=== PATIENT | female | born 1980 | race Caucasian/White ===

== ENCOUNTER → 2016-06-26 | Outpatient (CLI) | payer OTHER ==
[~2016-06-26] MED LIST: SODIUM CHLORIDE 0.9% 250 ML in EMPTY BAG 1 BAG IV PRN
[2016-06-26] MEDS: SODIUM CHLORIDE 0.9% 500 ML in EMPTY BAG 1 BAG IV PRN ×4 (12:45→15:36)
[2016-06-26 12:57] VITALS: BP 103/59; PULSE 71; RESP 16; TEMP 98.6
== END | disposition home or self-care (01) ==
LOC: PROCWHC3 12:24
PROVIDERS: ATTEND Surgery Plastic and Reconstructive Surgery
DX: E86.0 Dehydration (principal)
CPT/HCPCS: 96360; 96361

== ENCOUNTER → 2016-07-04 | Outpatient (CLI) | payer OTHER ==
[2016-07-04 15:26] VITALS: BP 106/64; PULSE 46; TEMP 98.3
[2016-07-04 16:01] LABS: EKG EKG PERFORMED
[2016-07-04 16:18] VITALS: BMI 40.4
[2016-07-04 16:47] LABS: CH 28.1; CHCM 32.3; HCT 48.3 % (34.0-46.0); HDW 3.22; HGB 15.2 gm/dL (11.4-16.0); MCH 27.5 pg (25.0-35.0); MCHC 31.4 g/dL (31.0-37.0); MCV 87.7 fL (80.0-100.0); Mean Platelet Volume 10.1; RBC 5.51 m/uL (3.80-5.40); RDW 14.9 % (11.5-15.5); WBC 8.9 k/uL (3.8-10.6)
[2016-07-04 16:54] LABS: INR 1.2 (<1.1); Partial Thromboplastin Time 24.9 sec (22.0-30.0); Prothrombin Time 11.9 sec (9.0-12.0)
[2016-07-04 17:16] LABS: ALT 90 U/L (9-52); AST 66 U/L (14-36); Alkaline Phosphatase 78 U/L (38-126); Anion Gap 10 mmol/L; Blood Urea Nitrogen 12 mg/dL (7-17); Calcium 9.4 mg/dL (8.4-10.2); Carbon Dioxide 24 mmol/L (22-30); Chloride 109 mmol/L (98-107); Cholesterol 151 mg/dL (<200); Glucose 87 mg/dL (74-99); HDL Cholesterol 25 mg/dL (40-60); Iron 52 ug/dL (37-170); Magnesium 2.1 mg/dL (1.6-2.3); Non-African American GFR(MDRD) >60 (>60 ml/min/1.73 sqM); Potassium 4.4 mmol/L (3.5-5.1); Sodium 143 mmol/L (137-145); Total Bilirubin 0.5 mg/dL (0.2-1.3); Total Protein 6.5 g/dL (6.3-8.2); Triglycerides 118 mg/dL (<150)
[2016-07-04 17:27] LABS: % Iron Saturation 20.5 % (20-50); Prealbumin 16 mg/dL (18-36); Total Iron Binding Capacity 254 ug/dL (265-497)
[2016-07-04 18:23] LABS: Vitamin B12 830 pg/mL (239-931)
[2016-07-04 21:28] LABS: Hemoglobin A1C 5.3 % (4.2-6.1)
[2016-07-06 16:52] LABS: Selenium 126 mcg/L (63-160)
--- NOTE | 2016-07-22 16:57 | P.PN ---
Progress Note - Text DATE OF SERVICE: 07/04/2016 CHIEF COMPLAINT: Follow-up gastric bypass. HISTORY OF PRESENT ILLNESS: Caryn Riley is a 35-year-old female who is status post gastric bypass on 2015. She is now one month out. Her highest weight at 5 feet 9-3/4 inches was 325 pounds. Body mass index was 47. Today she comes in weighing 281 pounds. Body mass index is down to 41. He has lost 44 pounds in one month. Percent excess weight loss is 28%. She has actually lost another 20 pounds since her last visit in the last several weeks. She reports troubles with nausea including poor oral intake of less than 40 ounces of fluids. She has difficulty with her protein intake. No reports of nausea and vomiting. She does report dizziness, consistent with dehydration. PHYSICAL EXAM: VITAL SIGNS: 98.3, 46, 106/64, 5 feet 9-3/4 inches, 281 pounds. Body mass index 40.6. GENERAL: Well-developed female in no acute distress. ABDOMEN: No cellulitis or signs of infection. Wounds are granulated. HEENT: No scleral icterus. Extraocular muscles are intact. Moist buccal mucosa. NECK: Supple without lymphadenopathy. CHEST: Nonlabored respirations with equal bilateral excursions. CARDIOVASCULAR: Bradycardic. 2+ pulses. MUSCULOSKELETAL: No clubbing, cyanosis, or edema. NEUROLOGICAL: Cranial nerves 2 through 12 grossly within normal limits. No focal or lateralizing signs. PSYCH: Appropriate affect. Alert and oriented to person, place and time. LABS: White count normal at 8.9. Hemoglobin elevated at 15.2. RBC elevated at 5.51. Hematocrit elevated at 48.3. INR normal at 1.2. Chloride elevated at 109. Total iron-binding capacity low at 254. AST elevated 66. ALT elevated at 90. Prealbumin low at 16. LDL elevated at 102. Cholesterol normal at 151. HDL low at 25. EKG results pending. ASSESSMENT: 1. Morbid obesity due to excess caloric intake. 2. Body mass index down from 47 down to 40.6. 3. Gastroesophageal reflux disease, resolved. 4. Vitamin D deficiency. 5. Osteoarthritis of the bilateral hips. 6. Osteoarthritis of the knees. 9. Dietary surveillance and counseling. 7. Depression without recent suicidal ideation. 8. Asthma. 9. Bipolar disorder. 10. Obstructive sleep apnea. 11. Status post Sue-en-Y gastric bypass. 12. Dehydration. 13. Dietary surveillance and counseling. 14. Medical noncompliance secondary to intolerance to protein shakes. 15. Elevated AST. 16. Elevated ALT. 17. New onset bradycardia. 18. Adverse reaction of Prozac. PLAN: 1. Recommend fluid hydration as her chloride level as well as her hematocrit are elevated. 2. She is also on Prozac for which the risk factors and symptoms of Prozac were reviewed, consistent with her symptoms. 3. Her prealbumin is consistent with low protein intake. Goal protein intake of over 70+ grams was also advised. 4. Also recommend followup between 1 to 2 weeks.
== END | disposition home or self-care (01) ==
LOC: BARWHC3 14:21
PROVIDERS: ATTEND Surgery Plastic and Reconstructive Surgery
DX: Z48.815 Encounter for surgical aftercare following surgery on the digestive system (principal); Z71.3 Dietary counseling and surveillance; Z98.84 Bariatric surgery status; Z68.42 Body mass index [BMI] 45.0-49.9, adult; E86.0 Dehydration; Z91.11 Patient's noncompliance with dietary regimen; R79.89 Other specified abnormal findings of blood chemistry; R00.1 Bradycardia, unspecified; T43.225A Adverse effect of selective serotonin reuptake inhibitors, initial encounter; E21.1 Secondary hyperparathyroidism, not elsewhere classified; E89.1 Postprocedural hypoinsulinemia; D50.8 Other iron deficiency anemias; E44.0 Moderate protein-calorie malnutrition; E55.9 Vitamin D deficiency, unspecified; K74.1 Hepatic sclerosis; T56.894A Toxic effect of other metals, undetermined, initial encounter; K90.9 Intestinal malabsorption, unspecified
CPT/HCPCS: 36415; 80053; 80061; 82306; 82525; 82607; 82728; 82746; 83036; 83540; 83550; 83735; 83970; 84100; 84134; 84255; 84425; 84443; 84590; 84630; 85027; 85610; 85730; 93005; 99211

== ENCOUNTER → 2016-11-01 | Outpatient (CLI) | payer OTHER ==
[2016-11-01 10:49] VITALS: BP 112/72; PULSE 53; RESP 16; TEMP 98.1; BMI 37.8
[2016-11-01 12:59] LABS: CH 27.7; CHCM 31.4; HCT 47.2 % (34.0-46.0); HDW 2.74; HGB 14.7 gm/dL (11.4-16.0); Hypochromasia Slight; MCH 27.7 pg (25.0-35.0); MCHC 31.2 g/dL (31.0-37.0); MCV 88.7 fL (80.0-100.0); Mean Platelet Volume 7.2; RBC 5.31 m/uL (3.80-5.40); RDW 13.1 % (11.5-15.5); WBC 12.1 k/uL (3.8-10.6)
[2016-11-01 13:06] LABS: Partial Thromboplastin Time 24.5 sec (22.0-30.0); Prothrombin Time 10.5 sec (9.0-12.0)
[2016-11-01 13:20] LABS: ALT 45 U/L (9-52); AST 29 U/L (14-36); Alkaline Phosphatase 79 U/L (38-126); Anion Gap 10 mmol/L; Blood Urea Nitrogen 16 mg/dL (7-17); Calcium 9.7 mg/dL (8.4-10.2); Carbon Dioxide 28 mmol/L (22-30); Chloride 105 mmol/L (98-107); Cholesterol 177 mg/dL (<200); Glucose 88 mg/dL (74-99); HDL Cholesterol 39 mg/dL (40-60); Iron 40 ug/dL (37-170); Magnesium 1.9 mg/dL (1.6-2.3); Non-African American GFR(MDRD) >60 (>60 ml/min/1.73 sqM); Phosphorous 5.2 mg/dL (2.5-4.5); Sodium 143 mmol/L (137-145); Total Bilirubin 0.3 mg/dL (0.2-1.3); Total Protein 7.3 g/dL (6.3-8.2); Triglycerides 164 mg/dL (<150)
[2016-11-01 13:32] LABS: % Iron Saturation 12.4 % (20-50); Prealbumin 19 mg/dL (18-36); Total Iron Binding Capacity 323 ug/dL (265-497)
[2016-11-01 13:38] LABS: Hemoglobin A1C 5.7 % (4.2-6.1)
[2016-11-01 14:26] LABS: Vitamin B12 581 pg/mL (239-931)
[2016-11-06 16:40] LABS: Selenium 145 mcg/L (63-160)
--- NOTE | 2016-12-20 14:01 | P.PN ---
Progress Note - Text DATE OF SERVICE: 11/01/2016 CHIEF COMPLAINT: Follow-up gastric bypass. HISTORY OF PRESENT ILLNESS: Caryn Riley is a 36-year-old female status post Sue-en-Y gastric bypass on 06/04/2016. She is now 5 months out. Her ideal body weight for her 5 feet 9-3/4 inch frame is 168 pounds. Her highest weight was 325 pounds. Today she comes in weighing 262 pounds. She has lost 63 pounds. Percent excess weight loss is 40%. Body mass index reduced from 47 down to 37.9. She has lost approximately 19 pounds in 4 months. She reports intermittent abdominal pain. She has restarted her Prilosec. She is off Prozac. She only takes Ativan as needed. No reports of high blood pressure. No reports of obstructive sleep apnea. She is trying to take 80 to 90 grams of protein daily. She denies any diarrhea or dumping syndrome. Now she presents for further evaluation and management. PAST MEDICAL HISTORY: 1. History ruptured splenic aneurysm. 2. Bipolar disorder. 3. Depression. 4. Morbid obesity. 5. Osteoarthritis. 6. Asthma. 7. Gastroesophageal reflux disease. 8. Panniculitis. 9. History of chronic abdominal pain. 10. History of uterine dysplasia. 11. Chronic diarrhea. PAST SURGICAL HISTORY: 1. Exploratory laparotomy with splenectomy for splenic artery aneurysm. 2. EGD. 3. Colonoscopy. 4. Laparoscopic cholecystectomy with lysis of adhesions. 5. Gastric bypass. MEDICATIONS: 1. Vitamin A. 2. Omeprazole. 3. Multivitamin. 4. Singulair. ALLERGIES: 1. MORPHINE. 2. PHENERGAN. 3. SULFA. FAMILY HISTORY: Pertinent for depression including mood disorder. She has a family history of bladder, brain, breast, cervical, colon, esophageal, liver, lung, ovarian, prostate, thyroid, uterine, bone cancer and reproductive cancer within her family. Also strong family history of diabetes, including morbid obesity. SOCIAL HISTORY: Lifelong nontobacco user. Denies any illicit drug use or alcohol use. REVIEW OF SYSTEMS: CONSTITUTIONAL: Recent weight loss of 19 pounds in 4 months. Percent excess weight loss of 40%. Body mass index reduced from 47.1 down to 37.9. Initial weight 325 pounds. [place] body weight of 163 pounds for her 5 feet , 9-3/4 inches frame. GASTROINTESTINAL: No reports of dumping syndrome. Does report intermittent epigastric abdominal pain and takes omeprazole. HEENT: No reports or troubles with vision, hearing or dysphagia. ENDOCRINE: No reports of active diabetes or thyroid disorder. She does have vitamin D deficiency. RESPIRATORY: She has a history of mild sleep apnea. No reports of recent pneumonia. CARDIOVASCULAR: Denies any recent chest pain or heart attack. No reports of moderate hypertension. MUSCULOSKELETAL: Has diffuse joint pain including lower back, knees and hips. NEURO: No reports of stroke or seizure disorder. PSYCH: History of depression without suicidal ideation. HEMATOLOGIC: No current history of DVTs or pulmonary emboli. PHYSICAL EXAM: VITAL SIGNS: 98.1, 53, 16, 112/72. Height 5 feet 9-3/4 inch frame. Body mass is 37.9. ABDOMEN: Soft, nontender. No palpable incisional hernias. GENERAL: Well-developed, pleasant female in no acute distress. HEENT: No scleral icterus. Extraocular muscles are intact. Moist buccal mucosa. NECK: Supple without lymphadenopathy. CHEST: Nonlabored respirations with equal bilateral excursions. CARDIOVASCULAR: Regular rate and rhythm. MUSCULOSKELETAL: No clubbing, cyanosis, or edema. NEUROLOGICAL: Cranial nerves 2 through 12 grossly within normal limits. No focal or lateralizing signs. PSYCH: Appropriate affect. Alert and oriented to person, place and time. LABS: White count 12.1, hematocrit elevated 47.2. Phosphorus elevated at 5.2. Percent iron saturation low at 12.4. Triglycerides elevated at 154. LDL elevated at 105. HDL low at 39. ASSESSMENT: 1. Morbid obesity due to excess calories. 2. Body mass index reduced from 47.1 down to 37.9. 3. Gastroesophageal reflux disease, now resolved. 4. Status post Sue-en-Y gastric bypass. 5. Vitamin D deficiency. 6. Osteoarthritis of the bilateral hips. 7. Osteoarthritis of the knees. 8. Family history of multiple gastrointestinal cancers. 9. Dietary surveillance and counseling. 10. Depression without recent suicidal ideation. 11. Asthma. 12. Posttraumatic stress disorder. 13. Bipolar disorder. 14. Obstructive sleep apnea. 15. History of bradycardia. 16. Leukocytosis. 17. Hypertriglyceridemia. 18. Epigastric abdominal pain. PLAN: 1. She has completed bariatric metabolic panel. Findings are consistent with elevated triglyceride levels. 2. Leukocytosis of unclear etiology. Recommend repeat CBC. 3. She has bradycardia. She would benefit from evaluation with a chemical worker. 4. Also recommend upper endoscopy for history of epigastric abdominal pain. 5. With regard to exercise, recommend 5000 to 6000 steps daily. 6. Also recommend muscle toning exercises. 7. Recommend follow-up at least 9 months postop.
== END | disposition home or self-care (01) ==
LOC: BARWHC3 09:18
PROVIDERS: ATTEND Surgery Plastic and Reconstructive Surgery
DX: Z48.815 Encounter for surgical aftercare following surgery on the digestive system (principal); E66.01 Morbid (severe) obesity due to excess calories; Z68.37 Body mass index [BMI] 37.0-37.9, adult; Z98.84 Bariatric surgery status; E89.1 Postprocedural hypoinsulinemia; D50.9 Iron deficiency anemia, unspecified; E44.0 Moderate protein-calorie malnutrition; E55.9 Vitamin D deficiency, unspecified; K74.1 Hepatic sclerosis; N19 Unspecified kidney failure; K50.90 Crohn's disease, unspecified, without complications; Z71.3 Dietary counseling and surveillance
CPT/HCPCS: 80053; 80061; 82306; 82525; 82607; 82728; 82746; 83036; 83540; 83550; 83735; 83970; 84100; 84134; 84255; 84425; 84443; 84590; 84630; 85027; 85610; 85730; 97803; 99211

== ENCOUNTER 2016-12-03 05:43 | Observation (INO) | payer OTHER ==
[2016-12-03] MEDS ORDERED: IOHEXOL 350 MG/ML 25 ML BOTTLE (ORAL USE) PO PRN (05:51)
[2016-12-03] MEDS ORDERED: SODIUM CHLORIDE 0.9% 1,000 ML IV STA (05:51)
[2016-12-03] MEDS ORDERED: RX INFO: IV CONTRAST WAS GIVEN 1 EACH MISC MISCELLANE PRN (05:51)
[2016-12-03] MEDS ORDERED: ONDANSETRON 4 MG/2 ML VIAL IVP STA (05:52)
--- NOTE | 2016-12-03 05:55 | ED ---
General Adult HPI - General Source: patient, RN notes reviewed Mode of arrival: ambulatory Limitations: no limitations <Seb Odell - Last Filed: 12/03/16 07:15> <Rehan Sr - Last Filed: 12/03/16 08:09> - General Chief complaint: Abdominal Pain Time Seen by Provider: 12/03/16 05:45 - History of Present Illness Initial comments: This is a 36-year-old female who has had the Diogo-en-Y bypass surgery 5 months ago. Patient stated he started having chest pain about 7:00 last evening and the pain continues. Patient states she is nauseated but has not vomited. Patient states the pain is left upper quadrant. Patient denies any diarrhea. Patient denies any fever or chills. Patient denies any chest pain difficult breathing or shortness of breath. Patient denies any recent cough. Patient denies any lightheadedness or dizziness. (Seb Odell) - Related Data Home Medications Medication Instructions Recorded Confirmed Montelukast [Singulair] 10 mg PO DAILY 12/01/15 12/03/16 Multivitamins, Thera [Multivitamin 1 tab PO DAILY 12/03/16 12/03/16 (formulary)] Previous Rx's Medication Instructions Recorded Omeprazole 40 mg PO DAILY #90 capsule. 06/04/16 Vitamin A 8,000 unit PO DAILY #30 capsule 07/17/16 Allergies Allergy/AdvReac Type Severity Reaction Status Date / Time alprazolam [From Xanax] Allergy Unknown Verified 12/03/16 07:52 hydromorphone [From Dilaudid] Allergy Unknown Verified 12/03/16 07:52 morphine Allergy Unknown Verified 12/03/16 07:52 quetiapine [From Seroquel] Allergy Hallucinati Verified 12/03/16 07:52 ons promethazine HCl AdvReac Swelling Verified 12/03/16 07:52 [From Phenergan] Sulfa (Sulfonamide AdvReac Unknown Verified 12/03/16 07:52 Antibiotics) Review of Systems ROS Other: All systems not noted in ROS Statement are negative. <Seb Odell - Last Filed: 12/03/16 07:15> ROS Other: All systems not noted in ROS Statement are negative. <Rehan Sr - Last Filed: 12/03/16 08:09> ROS Statement: Those systems with pertinent positive or pertinent negative responses have been documented in the HPI. Past Medical History Past Medical History: Asthma, GERD/Reflux, GI Bleed, Hyperlipidemia, Sleep Apnea /CPAP/BIPAP, Thyroid Disorder Additional Past Medical History / Comment(s): HYPOGLYCEMIC. PAST HX THYROID PROB. Borderline Sleep Apnea-no TX. VARICOSE VEINS.PT STATED THAT SINCE ON PRE OP DIET-STOOLS/LOOSE History of Any Multi-Drug Resistant Organisms: None Reported Past Surgical History: Adenoidectomy, Bariatric Surgery, Cholecystectomy, Tonsillectomy Additional Past Surgical History / Comment(s): Spleenectomy D/T Frequent strep infections/bronchitis/pneumonia. COLONOSCOPY. 06-04-16 DIOGO EN Y Past Anesthesia/Blood Transfusion Reactions: No Reported Reaction Past Psychological History: Bipolar, PTSD Smoking Status: Never smoker Past Alcohol Use History: None Reported Past Drug Use History: None Reported - Past Family History Mother Family Medical History: Cancer, Diabetes Mellitus, Fibromyalgia, Hyperlipidemia , Hypertension Father Family Medical History: Cancer, Coronary Artery Disease (CAD), Hypertension Additional Family Medical History / Comment(s): thyroid Sister(s) Family Medical History: Cancer <Seb Odell - Last Filed: 12/03/16 07:15> General Exam Limitations: no limitations <Seb Odell - Last Filed: 12/03/16 07:15> <Rehan Sr - Last Filed: 12/03/16 08:09> - General Exam Comments Initial Comments: GENERAL: Patient is well-developed and well-nourished. Patient is nontoxic and well- hydrated and is in mild distress. ENT: Neck is soft and supple. No significant lymphadenopathy is noted. Oropharynx is clear. Moist mucous membranes. Neck has full range of motion without eliciting any pain. EYES: The sclera were anicteric and conjunctiva were pink and moist. Extraocular movements were intact and pupils were equal round and reactive to light. Eyelids were unremarkable. PULMONARY: Unlabored respirations. Good breath sounds bilaterally. No audible rales rhonchi or wheezing was noted. CARDIOVASCULAR: There is a regular rate and rhythm without any murmurs gallops or rubs. ABDOMEN: Patient has a left upper quadrant abdominal pain to palpation which is minimal no rebound or guarding SKIN: Skin is clear with no lesions or rashes and otherwise unremarkable. NEUROLOGIC: Patient is alert and oriented x3. Cranial nerves II through XII are grossly intact. Motor and sensory are also intact. Normal speech, volume and content. Symmetrical smile. MUSCULOSKELETAL: Normal extremities with adequate strength and full range of motion. No lower extremity swelling or edema. No calf tenderness. LYMPHATICS: No significant lymphadenopathy is noted PSYCHIATRIC: Normal psychiatric evaluation. Normal interpersonal interactions appears functionally intact in deals appropriately with others. No signs of depression. No signs of anxiety. (Seb Odell) EKG Findings - EKG Comments: EKG Findings:: Sinus bradycardia at 40. OR 134. QRS 104. QT 524. QTC 427. Normal axis. Normal axis. Normal QRS. Normal ST-T. <Rehan Sr - Last Filed: 12/03/16 08:09> Medical Decision Making - Lab Data Result diagrams: 12/03/16 05:50 12/03/16 05:50 <Seb Odell - Last Filed: 12/03/16 07:15> - Lab Data Result diagrams: 12/03/16 05:50 12/03/16 05:50 - Radiology Data Radiology results: report reviewed (Computed tomography scan of the abdomen and pelvis shows status post Diogo-en-Y. Large gastric contents. Distention of the gastric pouch.) <Rehan Sr - Last Filed: 12/03/16 08:09> - Medical Decision Making Dr. Sr will be taking over the care of this patient at 7 AM (Seb Odell) Patient reevaluated and resting comfortably in bed. Patient updated on results and plan. Patient states she has had low heart rate in the past. Patient does not have symptomatic bradycardia. Patient is updated regarding recommendation follow-up with her primary care physician with this and signs to look for. Case was also discussed with Dr. Elias, who will admit for observation. She states the patient is scheduled for EGD on Saturday. (Rehan Sr) - Lab Data Lab Results 12/03/16 12/03/16 12/03/16 Range/Units 05:50 05:50 06:25 WBC 11.0 H (3.8-10.6) k/uL RBC 4.96 (3.80-5.40) m/uL Hgb 13.7 (11.4-16.0) gm/dL Hct 41.2 (34.0-46.0) % MCV 83.1 D (80.0-100.0) fL MCH 27.7 (25.0-35.0) pg MCHC 33.3 (31.0-37.0) g/dL RDW 13.0 (11.5-15.5) % Plt Count 427 (150-450) k/uL Neutrophils % 44 % Lymphocytes % 42 % Monocytes % 6 % Eosinophils % 3 % Basophils % 1 % Neutrophils # 4.9 (1.3-7.7) k/uL Lymphocytes # 4.6 (1.0-4.8) k/uL Monocytes # 0.7 (0-1.0) k/uL Eosinophils # 0.3 (0-0.7) k/uL Basophils # 0.1 (0-0.2) k/uL Sodium 144 (137-145) mmol/L Potassium 4.1 (3.5-5.1) mmol/L Chloride 109 H (98-107) mmol/L Carbon Dioxide 24 (22-30) mmol/L Anion Gap 11 mmol/L BUN 13 (7-17) mg/dL Creatinine 0.80 (0.52-1.04) mg/dL Est GFR (MDRD) Af Amer >60 (>60 ml/min/1.73 sqM) Est GFR (MDRD) Non-Af >60 (>60 ml/min/1.73 sqM) Glucose 97 (74-99) mg/dL Plasma Lactic Acid Jacob 0.9 (0.7-2.0) mmol/L Calcium 9.3 (8.4-10.2) mg/dL Total Bilirubin 0.4 (0.2-1.3) mg/dL AST 22 (14-36) U/L ALT 40 (9-52) U/L Alkaline Phosphatase 67 (38-126) U/L Total Protein 6.7 (6.3-8.2) g/dL Albumin 3.7 (3.5-5.0) g/dL Amylase <30 L (30-110) U/L Lipase 34 (23-300) U/L Disposition <Seb Odell - Last Filed: 12/03/16 07:15> Decision Time: 08:08 <Rehan Sr - Last Filed: 12/03/16 08:09> Clinical Impression: Abdominal pain, Partial gastric outlet obstruction Disposition: ADMITTED IP TO THIS HOSP Referrals: Nonstaff,Physician [Primary Care Provider] - 1-2 days
[2016-12-03 06:13] LABS: ALT 40 U/L (9-52); AST 22 U/L (14-36); Alkaline Phosphatase 67 U/L (38-126); Amylase <30 U/L (30-110); Anion Gap 11 mmol/L; Blood Urea Nitrogen 13 mg/dL (7-17); Calcium 9.3 mg/dL (8.4-10.2); Carbon Dioxide 24 mmol/L (22-30); Chloride 109 mmol/L (98-107); Glucose 97 mg/dL (74-99); Non-African American GFR(MDRD) >60 (>60 ml/min/1.73 sqM); Potassium 4.1 mmol/L (3.5-5.1); Sodium 144 mmol/L (137-145); Total Bilirubin 0.4 mg/dL (0.2-1.3); Total Protein 6.7 g/dL (6.3-8.2)
[2016-12-03 06:17] LABS: Basophils # (A) 0.1 k/uL (0-0.2); Basophils % (A) 1 %; CH 27.5; CHCM 33.3; Eosinophils # (A) 0.3 k/uL (0-0.7); Eosinophils % (A) 3 %; HCT 41.2 % (34.0-46.0); HDW 3.25; HGB 13.7 gm/dL (11.4-16.0); Luc # (Auto) 0.46; Luc % (Auto) 4; Lymphocytes # (A) 4.6 k/uL (1.0-4.8); Lymphocytes % (A) 42 %; MCH 27.7 pg (25.0-35.0); MCHC 33.3 g/dL (31.0-37.0); Mean Platelet Volume 6.6; Monocytes # (A) 0.7 k/uL (0-1.0); Monocytes % (A) 6 %; Neutrophils # (A) 4.9 k/uL (1.3-7.7); Neutrophils % (A) 44 %; RBC 4.96 m/uL (3.80-5.40)
[2016-12-03 06:20] LABS: MCV 83.1 fL (80.0-100.0)
--- NOTE | 2016-12-03 06:43 | CT ---
EXAM: CT Abdomen and Pelvis With Intravenous Contrast CLINICAL HISTORY: Abdominal pain. TECHNIQUE: Axial computed tomography images of the abdomen and pelvis with intravenous contrast. Coronal and sagittal reformatted images were created and reviewed. DOSE INFORMATION: CTDI is 22.70, 24.10 mGy and DLP is 2154.50 mGy-cm. This CT exam was performed using one or more of the following dose reduction techniques: automated exposure control, adjustment of the mA and/or kV according to patient size, and/or use of iterative reconstruction technique. COMPARISON: No relevant prior studies available. FINDINGS: Lower thorax: No acute findings. ABDOMEN: Liver: Unremarkable. No mass. Gallbladder and bile ducts: Status post cholecystectomy. No significant biliary dilation. Pancreas: Unremarkable. No ductal dilation. No mass. No adjacent inflammatory changes. Spleen: Status post splenectomy. Nodule adjacent to the stomach measuring 3.7 cm may represent residual splenic tissue. Adrenals: Unremarkable. No mass. Kidneys and ureters: Unremarkable. No hydronephrosis or ureteral calculus. No solid mass. Stomach and bowel: Status post Sue-en-Y gastric bypass surgery with relatively large gastric contents resulting in mild distention of the gastric pouch. Low-attenuation gastric contents measures approximately 11.2 x 6.8 x 6.0 cm. No contrast within the excluded stomach. No evidence of small bowel obstruction. No small bowel wall thickening. Appendix: No findings to suggest acute appendicitis. PELVIS: Bladder: Unremarkable. No mass or wall thickening. Reproductive: Unremarkable as visualized. ABDOMEN and PELVIS: Intraperitoneal space: Unremarkable. No free air. No significant fluid collection. Bones/joints: No acute fracture. No dislocation. Soft tissues: Unremarkable. Vasculature: Unremarkable. No aortic aneurysm. Lymph nodes: Unremarkable. No enlarged lymph nodes. IMPRESSION: 1. Status post Sue-en-Y gastric bypass surgery with relatively large gastric contents resulting in mild distention of the gastric pouch. Correlate for recent meal. In the absence of recent meal consider etiologies such as stasis, partial obstruction at the gastroenteric anastomosis or (less likely) bezoar. 2. No evidence of small bowel obstruction, small bowel wall thickening or free air. 3. Status post splenectomy. Nodule adjacent to the stomach measuring 3. 7 cm may represent residual splenic tissue. 4. Status post cholecystectomy.
[2016-12-03] MEDS ORDERED: ACETAMINOPHEN IV (For NPO) 1,000 MG in SALINE 1 100ML.BAG IVPB STA (07:45)
[2016-12-03] MEDS ORDERED: FAMOTIDINE 20 MG/2 ML VIAL IV STA (07:45)
[2016-12-03] MEDS ORDERED: NALOXONE 0.4 MG/ML 1 ML VIAL IV PRN (08:09)
[2016-12-03] MEDS: SODIUM CHLORIDE 0.9% 1,000 ML IV SCH ×4 (09:26→21:12)
--- NOTE | 2016-12-03 10:07 | P.GSHP ---
History of Present Illness H&P Date: 12/03/16 Chief Complaint: Abdominal pain The patient is a 36-year-old female who reports last night eating chicken. She reports following eating chicken, she had increasing epigastric abdominal pain. She is able to pass flatus. She reports nausea. Since presenting to the emergency room, she reports abdominal pain has improved. She denies any previous episode. Incidentally, she scheduled for an upper endoscopy for dysphagia to solid food. - Review of Systems Comment: CONSTITUTIONAL: Denies any fever or chills. Intentional weight loss over 80+ pounds from gastric bypass. HEENT: Denies any trouble with vision, hearing or nosebleeds. No difficulty swallowing. LYMPHATIC: The patient denies any lumps and bumps around the neck. ENDOCRINE: Denies any thyroid disorders. Denies any blood sugar glucose intolerance. RESPIRATORY: Denies pneumonia. Denies any troubles with breathing or dyspnea on exertion. CARDIOVASCULAR: Denies any chest pain, palpitations, or recent heart attacks. GASTROINTESTINAL: Has heart burn. No constipation or bright red blood per rectum. GENITOURINARY: Denies any blood in urine or increased urinary frequency. MUSCULOSKELETAL: Denies any back pain, stiffness, joint arthritis. NEUROLOGIC: Denies any numbness or tingling along the distal extremities. No seizure disorders or headaches. PSYCHIATRIC: History of depression. HEMATOLOGIC: Denies any abnormal bleeding or bruising. Past Medical History Past Medical History: Asthma, GERD/Reflux, GI Bleed, Pneumonia, Sleep Apnea/CPAP /BIPAP, Thyroid Disorder Additional Past Medical History / Comment(s): HYPOGLYCEMIC, PAST HX THYROID PROBLEM WHEN YOUNGER, Borderline Sleep Apnea-no TX, VARICOSE VEINS, BRONCHITIS , SPLENIC ANEURYSM-SPLEENECTOMY. History of Any Multi-Drug Resistant Organisms: None Reported Past Surgical History: Adenoidectomy, Bariatric Surgery, Cholecystectomy, Tonsillectomy Additional Past Surgical History / Comment(s): Spleenectomy, EGD/COLONOSCOPY. 06-04-16 DIOGO EN Y Past Anesthesia/Blood Transfusion Reactions: No Reported Reaction Past Psychological History: Anxiety, Bipolar, Depression, PTSD Additional Psychological History / Comment(s): PT RESIDES WITH HER 2 MINOR CHILDREN. SHE IS INDEPENDENT. Smoking Status: Never smoker Past Alcohol Use History: None Reported Past Drug Use History: None Reported - Past Family History Mother Family Medical History: Cancer, Diabetes Mellitus, Fibromyalgia, Hyperlipidemia , Hypertension Additional Family Medical History / Comment(s): Cervical cancer-hysterectomy. Father Family Medical History: Cancer, Coronary Artery Disease (CAD), Hypertension Additional Family Medical History / Comment(s): thyroid cancer that metastasized - at the age of 61yrs Sister(s) Family Medical History: Cancer Medications and Allergies Home Medications Medication Instructions Recorded Confirmed Type Montelukast [Singulair] 10 mg PO DAILY 12/01/15 12/03/16 History Multivitamins, Thera [Multivitamin 1 tab PO DAILY 12/03/16 12/03/16 History (formulary)] Allergies Allergy/AdvReac Type Severity Reaction Status Date / Time alprazolam [From Xanax] Allergy Unknown Verified 12/03/16 07:52 hydromorphone [From Dilaudid] Allergy Unknown Verified 12/03/16 07:52 morphine Allergy Unknown Verified 12/03/16 07:52 quetiapine [From Seroquel] Allergy Hallucinati Verified 12/03/16 07:52 ons promethazine HCl AdvReac Swelling Verified 12/03/16 07:52 [From Phenergan] Sulfa (Sulfonamide AdvReac Unknown Verified 12/03/16 07:52 Antibiotics) Surgical - Exam Vital Signs Temp Pulse Resp BP Pulse Ox 98.6 F 50 L 18 153/82 98 12/03/16 05:49 12/03/16 05:49 12/03/16 05:49 12/03/16 05:49 12/03/16 05:49 GENERAL: Well developed and in no acute distress. Pleasant. HEENT: No sclera icterus. Extraocular movements grossly intact. Moist buccal mucosa. Head is atraumatic, normocephalic. Hears conversational speech. No nasal drainage. NECK: Supple without lymphadenopathy. No JV distention. CHEST: Non-labored respirations and equal bilateral excursions. CARDIOVASCULAR: Regular rate and rhythm. Palpable 2+ radial pulses. ABDOMEN: Soft. Nondistended. Mild tenderness along the epigastrium. No peritoneal signs. MUSCULOSKELETAL: No clubbing, cyanosis or edema. NEUROLOGIC: No focal or lateralizing signs. PSYCH: Appropriate affect. Alert and oriented to person, place and time. Results - Labs 12/03/16 05:50 12/03/16 05:50 Abnormal Lab Results - Last 24 Hours (Table) 12/03/16 12/03/16 Range/Units 05:50 05:50 WBC 11.0 H (3.8-10.6) k/uL Chloride 109 H (98-107) mmol/L Amylase <30 L (30-110) U/L Diabetes panel 12/03/16 Range/Units 05:50 Sodium 144 (137-145) mmol/L Potassium 4.1 (3.5-5.1) mmol/L Chloride 109 H (98-107) mmol/L Carbon Dioxide 24 (22-30) mmol/L BUN 13 (7-17) mg/dL Creatinine 0.80 (0.52-1.04) mg/dL Glucose 97 (74-99) mg/dL Calcium 9.3 (8.4-10.2) mg/dL AST 22 (14-36) U/L ALT 40 (9-52) U/L Alkaline Phosphatase 67 (38-126) U/L Total Protein 6.7 (6.3-8.2) g/dL Albumin 3.7 (3.5-5.0) g/dL Calcium panel 12/03/16 Range/Units 05:50 Calcium 9.3 (8.4-10.2) mg/dL Albumin 3.7 (3.5-5.0) g/dL Pituitary panel 12/03/16 Range/Units 05:50 Sodium 144 (137-145) mmol/L Potassium 4.1 (3.5-5.1) mmol/L Chloride 109 H (98-107) mmol/L Carbon Dioxide 24 (22-30) mmol/L BUN 13 (7-17) mg/dL Creatinine 0.80 (0.52-1.04) mg/dL Glucose 97 (74-99) mg/dL Calcium 9.3 (8.4-10.2) mg/dL Adrenal panel 12/03/16 Range/Units 05:50 Sodium 144 (137-145) mmol/L Potassium 4.1 (3.5-5.1) mmol/L Chloride 109 H (98-107) mmol/L Carbon Dioxide 24 (22-30) mmol/L BUN 13 (7-17) mg/dL Creatinine 0.80 (0.52-1.04) mg/dL Glucose 97 (74-99) mg/dL Calcium 9.3 (8.4-10.2) mg/dL Total Bilirubin 0.4 (0.2-1.3) mg/dL AST 22 (14-36) U/L ALT 40 (9-52) U/L Alkaline Phosphatase 67 (38-126) U/L Total Protein 6.7 (6.3-8.2) g/dL Albumin 3.7 (3.5-5.0) g/dL - Imaging CT scan - abdomen: image reviewed CT scan - pelvis: image reviewed (No findings of free air. Food bezoar found along the stomach. No bowel obstruction.) Assessment and Plan (1) Nausea Status: Acute (2) Epigastric abdominal pain Status: Acute (3) Leukocytosis Status: Acute (4) S/P gastric bypass Status: Acute (5) Morbid (severe) obesity due to excess calories Status: Chronic (6) Dehydration Status: Acute Plan: 1. Recommend IV fluid hydration. 2. She reports initially over eating with epigastric abdominal pain. Recommend liquid diet and antrum. 3. No evidence of gastric outlet obstruction. 4. Repeat CBC after correction of dehydration.
[2016-12-03] MEDS ORDERED: PANTOPRAZOLE 40 MG/10 ML VIAL IVP ONE (10:15)
[2016-12-03] MEDS: ONDANSETRON 4 MG/2 ML VIAL IVP PRN ×2 (12:01→19:00)
[2016-12-03 12:26] LABS: Glucose,Whole Blood 83 mg/dL (75-99)
[2016-12-03] MEDS ORDERED: METOCLOPRAMIDE 5 MG/ML 2 ML VIAL ONE (14:01)
[2016-12-03 14:09] LABS: CH 27.5; CHCM 31.9; HCT 36.4 % (34.0-46.0); HDW 3.07; HGB 11.6 gm/dL (11.4-16.0); Hypochromasia Slight; MCH 27.7 pg (25.0-35.0); MCHC 31.9 g/dL (31.0-37.0); MCV 86.7 fL (80.0-100.0); RBC 4.19 m/uL (3.80-5.40); RDW 13.3 % (11.5-15.5); WBC 11.8 k/uL (3.8-10.6)
--- NOTE | 2016-12-03 19:46 | P.PN ---
Progress Note - Text Patient seen and evaluated. She still complains of nausea. She reports intolerance to oral such as liquids. We'll arrange for upper endoscopy with possible balloon dilatation. Nothing by mouth after midnight.
[2016-12-03] MEDS ORDERED: SCOPOLAMINE 1.5MG/72HR PATCH TRANSDERM STA (20:06)
[2016-12-03] MEDS: METOCLOPRAMIDE 5 MG/ML 2 ML VIAL IVP SCH (20:53)
[2016-12-03 20:54] LABS: Glucose,Whole Blood 87 mg/dL (75-99)
[2016-12-03] MEDS: ONDANSETRON 4 MG/2 ML VIAL IVP SCH (23:40)
[2016-12-04] MEDS: METOCLOPRAMIDE 5 MG/ML 2 ML VIAL IVP SCH ×2 (02:33→12:40)
[2016-12-04] MEDS: SODIUM CHLORIDE 0.9% 1,000 ML IV SCH ×4 (06:11→15:42)
[2016-12-04] MEDS: ONDANSETRON 4 MG/2 ML VIAL IVP SCH ×2 (06:13→12:37)
[2016-12-04 06:46] LABS: Glucose,Whole Blood 97 mg/dL (75-99)
[2016-12-04] MEDS ORDERED: PANTOPRAZOLE 40 MG TABLET PO SCH (07:30)
[2016-12-04 07:38] LABS: Basophils # (A) 0.1 k/uL (0-0.2); Basophils % (A) 1 %; CH 27.6; Eosinophils # (A) 0.2 k/uL (0-0.7); Eosinophils % (A) 2 %; HCT 36.3 % (34.0-46.0); HDW 3.05; HGB 11.5 gm/dL (11.4-16.0); Hypochromasia Slight; Luc # (Auto) 0.38; Luc % (Auto) 4; Lymphocytes # (A) 3.7 k/uL (1.0-4.8); Lymphocytes % (A) 37 %; MCH 27.5 pg (25.0-35.0); MCHC 31.7 g/dL (31.0-37.0); MCV 86.6 fL (80.0-100.0); Mean Platelet Volume 7.2; Monocytes # (A) 0.6 k/uL (0-1.0); Monocytes % (A) 6 %; Neutrophils # (A) 5.1 k/uL (1.3-7.7); Neutrophils % (A) 51 %; RDW 13.3 % (11.5-15.5); WBC (Perox) 10.58
[2016-12-04 07:49] LABS: Anion Gap 6 mmol/L; Blood Urea Nitrogen 7 mg/dL (7-17); Calcium 8.3 mg/dL (8.4-10.2); Carbon Dioxide 22 mmol/L (22-30); Chloride 113 mmol/L (98-107); Glucose 87 mg/dL (74-99); Magnesium 1.8 mg/dL (1.6-2.3); Non-African American GFR(MDRD) >60 (>60 ml/min/1.73 sqM); Phosphorous 3.6 mg/dL (2.5-4.5); Potassium 4.2 mmol/L (3.5-5.1); Sodium 141 mmol/L (137-145)
[2016-12-04] MEDS ORDERED: MONTELUKAST 10 MG TAB PO SCH (09:00)
[2016-12-04] MEDS ORDERED: VITAMIN A 10,000 UNIT CAPSULE PO SCH (09:00)
[2016-12-04] MEDS: MAGNESIUM SULFATE-D5W PMX 1 GM in DEXTROSE/WATER 1 100ML.BAG IVPB SCH ×2 (11:49→12:34)
[2016-12-04] MEDS ORDERED: MULTIVITAMINS, THERA 1 EACH TAB PO SCH (12:00)
[2016-12-04 12:07] LABS: Glucose,Whole Blood 90 mg/dL (75-99)
[2016-12-04] MEDS ORDERED: IV FLUID CONTINUATION 1,000 ML IV ONE (12:50)
[2016-12-04] MEDS ORDERED: PROPOFOL 10 MG/ML 20 ML VIAL IV ONE (12:50)
[2016-12-04] MEDS ORDERED: LIDOCAINE 1% INJ 10MG/ML (20 ML MDV) ONE (12:50)
[2016-12-04] MEDS ORDERED: GLYCOPYRROLATE 0.2 MG/ML 2 ML VIAL ONE (12:50)
--- NOTE | 2016-12-04 13:03 | P.HPADDEND ---
H&P Addendum H&P Addendum Date: 12/04/16 She still complains of dysphagia. We'll proceed with upper endoscopy with balloon dilatation.
--- NOTE | 2016-12-04 13:40 | P.PCN ---
Date of Procedure: 12/04/16 Preoperative Diagnosis: Postoperative Diagnosis: Procedure(s) Performed: Implants: Indications for Procedure: Operative Findings: Description of Procedure: PREOPERATIVE DIAGNOSIS: Dysphagia. Epigastric abdominal pain. History of gastric bezoar. Intractable nausea and vomiting. POSTOPERATIVE DIAGNOSIS: Dysphagia. Epigastric abdominal pain. History of gastric bezoar with food impaction along gastric pouch. Intractable nausea and vomiting OPERATION: Esophagogastrojejunoscopy with balloon dilatation from 15 to 20 mm. SURGEON: Christy Holloway MD ANESTHESIA: MAC. INDICATIONS: The patient is a 36-year-old female who presents with a history of gastric bypass including dysphagia following food impaction with chicken. Benefits and risks of the procedure were described. Informed consent was obtained. DESCRIPTION: The patient was brought into the endoscopy suite and laid in the left lateral decubitus position. After a timeout was confirmed, the procedure was initiated. An Olympus gastroscope was passed along the posterior oropharynx down to the distal esophagus. Moderate retained food was found along the distal esophagus including the gastric pouch and malodorous. Using a Rothnet, multiple passes were performed to remove the impacted food along gastric pouch. A gastrojejunal stricture of 15 mm was found as the adult gastroscope was 9.5 mm in size. A Clctin balloon dilator was placed through the scope. Final insufflation up to 20 mm was performed with a total of 2 minutes. The scope was advanced up to 50 cm from the incisors into the Sue limb. The mucosa of the gastrojejunal anastomosis was intact. No chronic gastrojejunal marginal ulcer was encountered. No full-thickness injury was encountered. The GI tract was desufflated. The patient was taken to postanesthesia care unit to rule out aspiration. FINDINGS: Retain food bezoar along gastric pouch. Stricture of approximately 15 mm encountered. No chronic gastrojejunal ulceration encountered. Successful balloon dilatation to 20 mm. RECOMMENDATIONS: Liquid diet advised for the next 24-48 hours.
[2016-12-04] MEDS ORDERED: LACTATED RINGERS 1,000 ML IV SCH (13:45)
--- NOTE | 2016-12-04 14:00 | XR ---
EXAMINATION TYPE: XR chest 1V DATE OF EXAM: 12/04/2016 COMPARISON: NONE HISTORY: History of food bezoar, assess for aspiration TECHNIQUE: AP upright portable FINDINGS: The lungs are not well-inflated at the moment of x-ray radiation exposure. However, the vis ualized lungs are clear and well expanded bilaterally. The pleural spaces are negative. Cardiac media stinal silhouette and bones and soft tissues are unremarkable. IMPRESSION: NO ACUTE PROCESS, AP PORTABLE UPRIGHT CHEST X-RAY.
[2016-12-04] MEDS ORDERED: DEXAMETHASONE SOD PHOSPHATE 10 MG/ML 1 ML VIAL IV STA (15:39)
[2016-12-04] MEDS ORDERED: ONDANSETRON 4 MG/2 ML VIAL IVP PRN (15:39)
[2016-12-04 17:00] LABS: Glucose,Whole Blood 83 mg/dL (75-99)
[2016-12-04 19:51] VITALS: BP 121/58; PULSE 53; RESP 18; TEMP 98.8
--- NOTE | 2016-12-04 20:51 | P.PN ---
Progress Note - Text Patient seen and evaluated this evening. "My abdominal pain is gone.". She is tolerating liquids. She has an appetite. Upper endoscopy findings were reviewed with her in detail. Patient to continue on a liquid diet. Patient is stable for discharge.
--- NOTE | 2016-12-04 20:54 | P.DS ---
Providers Date of admission: 12/03/16 08:09 Expected date of discharge: 12/04/16 Attending physician: Christy Holloway Primary care physician: Physician Nonstaff - Discharge Diagnosis(es) (1) Nausea Current Visit: Yes Status: Acute (2) Epigastric abdominal pain Current Visit: Yes Status: Acute (3) Leukocytosis Current Visit: No Status: Acute (4) S/P gastric bypass Current Visit: No Status: Acute (5) Morbid (severe) obesity due to excess calories Current Visit: No Status: Chronic (6) Dehydration Current Visit: Yes Status: Acute (7) Partial gastric outlet obstruction Current Visit: Yes Status: Acute Hospital Course: The patient is a 36-year-old female who presented acutely after ingesting chicken. She reported immediate epigastric and abdominal pain including chronic nausea. CT of the abdomen and pelvis was consistent with a food bezoar. Despite liquids, she had continued to have nausea. She was taken for upper endoscopy with removal of foreign body such as a food bezoar including balloon dilatation. Postprocedure, she was able to tolerate liquids. Her abdominal pain had improved. Prior to discharge she was stable. Pertinent Studies: CT of the abdomen and pelvis demonstrated food bezoar Procedures: Upper endoscopy with removal of foreign body. Upper endoscopy with balloon dilatation. Patient Condition at Discharge: Stable Plan - Discharge Summary New Discharge Prescriptions: No Action Montelukast [Singulair] 10 mg PO DAILY Omeprazole 40 mg PO DAILY #90 capsule. Vitamin A 8,000 unit PO DAILY #30 capsule Multivitamins, Thera [Multivitamin (formulary)] 1 tab PO DAILY Discharge Medication List Montelukast [Singulair] 10 mg PO DAILY 12/01/15 [History] Omeprazole 40 mg PO DAILY #90 capsule. 06/04/16 [Rx] Vitamin A 8,000 unit PO DAILY #30 capsule 07/17/16 [Rx] Multivitamins, Thera [Multivitamin (formulary)] 1 tab PO DAILY 12/03/16 [History ] Follow up Appointment(s)/Referral(s): Nonstaff,Physician [Primary Care Provider] - 1-2 days Christy Holloway MD [STAFF PHYSICIAN] - 12/13/16 (Bariatric center) Patient Instructions/Handouts: Esophageal Dilation (DC) Activity/Diet/Wound Care/Special Instructions: Activity as tolerated. Liquid diet for next 24 hrs. Discharge Disposition: HOME SELF-CARE
== END 2016-12-04 21:39 | disposition home or self-care (01) ==
LOC: EC 05:43 → 3OBS 08:09
PROVIDERS: ADMIT Surgery Plastic and Reconstructive Surgery; ATTEND Surgery Plastic and Reconstructive Surgery
DX: K31.1 Adult hypertrophic pyloric stenosis (principal); E86.0 Dehydration; E66.01 Morbid (severe) obesity due to excess calories; Z98.84 Bariatric surgery status; D72.829 Elevated white blood cell count, unspecified; Z79.899 Other long term (current) drug therapy; Z88.5 Allergy status to narcotic agent; Z88.2 Allergy status to sulfonamides; Z88.8 Allergy status to other drugs, medicaments and biological substances; K21.9 Gastro-esophageal reflux disease without esophagitis; J45.909 Unspecified asthma, uncomplicated; G47.30 Sleep apnea, unspecified; E78.5 Hyperlipidemia, unspecified; E07.9 Disorder of thyroid, unspecified; E16.2 Hypoglycemia, unspecified; Z82.49 Family history of ischemic heart disease and other diseases of the circulatory system; R00.1 Bradycardia, unspecified; F43.10 Post-traumatic stress disorder, unspecified; F31.9 Bipolar disorder, unspecified; Z68.36 Body mass index [BMI] 36.0-36.9, adult
CPT/HCPCS: 96361 ×2; 96375 ×2; 96376 ×2; 96374; 99285; 36415; 93005; 80053; 80048; 82150; 83605; 83690; 83735 ×2; 84100; 85025 ×2; 85027; 81025; 71010; 74177; 43247; 43249; G0378 ×2; J1100; J2765 ×2; J2405 ×2; J2001; J3475; Q9967; J0131; J2704; C9113; C1726

== ENCOUNTER → 2016-12-13 | Outpatient (CLI) | payer OTHER ==
[2016-12-13 10:56] VITALS: BP 101/62; PULSE 51; RESP 16; TEMP 98.5; BMI 36.6
--- NOTE | 2016-12-26 17:28 | P.PN ---
Progress Note - Text DATE OF SERVICE: 12/13/2016 CHIEF COMPLAINT: Follow-up gastric bypass. HISTORY OF PRESENT ILLNESS: Caryn Riley is a 36-year-old female status post Sue-en-Y gastric bypass on 06/04/2016. She is now 6 months out. She presented to the hospital 12/03/2016 with acute epigastric abdominal pain following eating boiled chicken. She had an upper endoscopy for removal of food bezoar. Since her procedure, she is doing better. Her abdominal pain is resolved. Separately, she has asymptomatic bradycardia. Now she presents for evaluation. Her ideal body weight for her 5 feet 9-3/4 inch frame is 168 pounds. Her highest weight was 325 pounds. Today she comes in weighing 253 pounds. She has lost 72 pounds. Percent excess weight loss is 46%. Body mass index reduced from 47.1 down to 36.6. She has lost another 9 pounds in 1 month. PAST MEDICAL HISTORY: 1. History ruptured splenic aneurysm. 2. Bipolar disorder. 3. Depression. 4. Morbid obesity. 5. Osteoarthritis. 6. Asthma. 7. Gastroesophageal reflux disease. 8. Panniculitis. 9. History of chronic abdominal pain. 10. History of uterine dysplasia. 11. Chronic diarrhea. PAST SURGICAL HISTORY: 1. Exploratory laparotomy with splenectomy for splenic artery aneurysm. 2. EGD. 3. Colonoscopy. 4. Laparoscopic cholecystectomy with lysis of adhesions. 5. Gastric bypass. MEDICATIONS: 1. Vitamin A. 2. Omeprazole. 3. Multivitamin. 4. Singulair. ALLERGIES: 1. MORPHINE. 2. PHENERGAN. 3. SULFA. FAMILY HISTORY: Pertinent for depression including mood disorder. She has a family history of bladder, brain, breast, cervical, colon, esophageal, liver, lung, ovarian, prostate, thyroid, uterine, bone cancer and reproductive cancer within her family. Also strong family history of diabetes, including morbid obesity. SOCIAL HISTORY: Lifelong nontobacco user. Denies any illicit drug use or alcohol use. REVIEW OF SYSTEMS: CONSTITUTIONAL: Her ideal body weight for her 5 feet 9-3/4 inch frame is 168 pounds. Her highest weight was 325 pounds. Today she comes in weighing 253 pounds. She has lost 72 pounds. Percent excess weight loss is 46%. Body mass index reduced from 47.1 down to 36.6. She has lost another 9 pounds in 1 month. GASTROINTESTINAL: No reports of dumping syndrome. Does report intermittent epigastric abdominal pain now resolved. HEENT: No reports or troubles with vision, hearing or dysphagia. ENDOCRINE: No reports of active diabetes or thyroid disorder. She does have vitamin D deficiency. RESPIRATORY: She has a history of mild sleep apnea, now resolved. No reports of recent pneumonia. CARDIOVASCULAR: Denies any recent chest pain or heart attack. No reports of moderate hypertension. History of asymptomatic bradycardia. MUSCULOSKELETAL: Has diffuse joint pain including lower back, knees and hips, now improved. NEURO: No reports of stroke or seizure disorder. PSYCH: History of depression without suicidal ideation. HEMATOLOGIC: No current history of DVTs or pulmonary emboli. PHYSICAL EXAM: VITAL SIGNS: 98.1, 53, 16, 112/72. Height 5 feet 9-3/4 inch frame. Body mass is 37.9. ABDOMEN: Soft, nontender. No palpable incisional hernias. GENERAL: Well-developed, pleasant female in no acute distress. HEENT: No scleral icterus. Extraocular muscles are intact. Moist buccal mucosa. NECK: Supple without lymphadenopathy. CHEST: Nonlabored respirations with equal bilateral excursions. CARDIOVASCULAR: Regular rate and rhythm. MUSCULOSKELETAL: No clubbing, cyanosis, or edema. NEUROLOGICAL: Cranial nerves 2 through 12 grossly within normal limits. No focal or lateralizing signs. PSYCH: Appropriate affect. Alert and oriented to person, place and time. LABS: Laboratory Last Values WBC 10.0 k/uL (3.8-10.6) 12/04/16 06:42 RBC 4.20 m/uL (3.80-5.40) 12/04/16 06:42 Hgb 11.5 gm/dL (11.4-16.0) 12/04/16 06:42 Hct 36.3 % (34.0-46.0) 12/04/16 06:42 MCV 86.6 fL (80.0-100.0) 12/04/16 06:42 MCH 27.5 pg (25.0-35.0) 12/04/16 06:42 MCHC 31.7 g/dL (31.0-37.0) 12/04/16 06:42 RDW 13.3 % (11.5-15.5) 12/04/16 06:42 Plt Count 376 k/uL (150-450) 12/04/16 06:42 Neutrophils % 51 % 12/04/16 06:42 Lymphocytes % 37 % 12/04/16 06:42 Monocytes % 6 % 12/04/16 06:42 Eosinophils % 2 % 12/04/16 06:42 Basophils % 1 % 12/04/16 06:42 Neutrophils # 5.1 k/uL (1.3-7.7) 12/04/16 06:42 Lymphocytes # 3.7 k/uL (1.0-4.8) 12/04/16 06:42 Monocytes # 0.6 k/uL (0-1.0) 12/04/16 06:42 Eosinophils # 0.2 k/uL (0-0.7) 12/04/16 06:42 Basophils # 0.1 k/uL (0-0.2) 12/04/16 06:42 Hypochromasia Slight 12/04/16 06:42 Sodium 141 mmol/L (137-145) 12/04/16 06:42 Potassium 4.2 mmol/L (3.5-5.1) 12/04/16 06:42 Chloride 113 mmol/L (98-107) H 12/04/16 06:42 Carbon Dioxide 22 mmol/L (22-30) 12/04/16 06:42 Anion Gap 6 mmol/L 12/04/16 06:42 BUN 7 mg/dL (7-17) 12/04/16 06:42 Creatinine 0.67 mg/dL (0.52-1.04) 12/04/16 06:42 Est GFR (MDRD) Af Amer >60 (>60 ml/min/1.73 sqM) 12/04/16 06:42 Est GFR (MDRD) Non-Af >60 (>60 ml/min/1.73 sqM) 12/04/16 06:42 Glucose 87 mg/dL (74-99) 12/04/16 06:42 POC Glucose (mg/dL) 83 mg/dL (75-99) 12/04/16 16:58 POC Glu [place] Surfacer ID Lakeisha Genao 12/04/16 16:58 Plasma Lactic Acid Jacob 0.9 mmol/L (0.7-2.0) 12/03/16 06:25 Calcium 8.3 mg/dL (8.4-10.2) L 12/04/16 06:42 Phosphorus 3.6 mg/dL (2.5-4.5) 12/04/16 06:42 Magnesium 1.8 mg/dL (1.6-2.3) 12/04/16 06:42 Total Bilirubin 0.4 mg/dL (0.2-1.3) 12/03/16 05:50 AST 22 U/L (14-36) 12/03/16 05:50 ALT 40 U/L (9-52) 12/03/16 05:50 Alkaline Phosphatase 67 U/L (38-126) 12/03/16 05:50 Total Protein 6.7 g/dL (6.3-8.2) 12/03/16 05:50 Albumin 3.7 g/dL (3.5-5.0) 12/03/16 05:50 Amylase <30 U/L (30-110) L 12/03/16 05:50 Lipase 34 U/L (23-300) 12/03/16 05:50 Urine HCG, Qual Not Detected (Not Detectd) 12/04/16 11:43 ASSESSMENT: 1. Morbid obesity due to excess calories. 2. Body mass index reduced from 47.1 down to 36.6. 3. Gastroesophageal reflux disease, now resolved. 4. Status post Sue-en-Y gastric bypass. 5. Vitamin D deficiency. 6. Osteoarthritis of the bilateral hips, improved. 7. Osteoarthritis of the knees, improved. 8. Family history of multiple gastrointestinal cancers. 9. Dietary surveillance and counseling. 10. Depression without recent suicidal ideation. 11. Asthma. 12. Posttraumatic stress disorder. 13. Bipolar disorder. 14. Obstructive sleep apnea, improved. 15. History of bradycardia. 16. Leukocytosis, resolved. 17. Hypertriglyceridemia. 18. Epigastric abdominal pain, resolved. PLAN: 1. With her bradycardia, recommend referral to chili pepper grinder. 2. Nutritional deficiencies identified with bariatric panel. 3. Continue with omeprazole for epigastric abdominal pain. 4. Follow-up 9 months postop, February 2017. 5. I've also recommended adding salt to her diet.
== END | disposition home or self-care (01) ==
LOC: BARWHC3 09:11
PROVIDERS: ATTEND Surgery Plastic and Reconstructive Surgery
DX: E66.01 Morbid (severe) obesity due to excess calories (principal); E55.9 Vitamin D deficiency, unspecified; J45.909 Unspecified asthma, uncomplicated; F43.10 Post-traumatic stress disorder, unspecified; F31.9 Bipolar disorder, unspecified; J44.9 Chronic obstructive pulmonary disease, unspecified; E78.1 Pure hyperglyceridemia; Z71.3 Dietary counseling and surveillance; Z68.36 Body mass index [BMI] 36.0-36.9, adult; Z98.84 Bariatric surgery status; Z79.899 Other long term (current) drug therapy; Z88.2 Allergy status to sulfonamides; Z88.5 Allergy status to narcotic agent; Z88.8 Allergy status to other drugs, medicaments and biological substances
CPT/HCPCS: 99211

== ENCOUNTER → 2017-04-24 | Outpatient (CLI) | payer OTHER ==
[2017-04-24 13:01] VITALS: BP 113/57; PULSE 97; RESP 16; TEMP 98.2; BMI 34.4
[2017-04-24 15:34] LABS: HCT 47.7 % (34.0-46.0); HGB 14.8 gm/dL (11.4-16.0); Hypochromasia Moderate; MCH 26.7 pg (25.0-35.0); Mean Platelet Volume 7.2; Platelet Count 376 k/uL (150-450); RBC 5.55 m/uL (3.80-5.40); RDW 14.1 % (11.5-15.5); WBC 12.8 k/uL (3.8-10.6)
[2017-04-24 15:41] LABS: Partial Thromboplastin Time 24.5 sec (22.0-30.0); Prothrombin Time 10.5 sec (9.0-12.0)
[2017-04-24 15:55] LABS: ALT 48 U/L (9-52); AST 28 U/L (14-36); Albumin 3.7 g/dL (3.5-5.0); Alkaline Phosphatase 75 U/L (38-126); Anion Gap 8 mmol/L; Blood Urea Nitrogen 19 mg/dL (7-17); Calcium 9.5 mg/dL (8.4-10.2); Carbon Dioxide 27 mmol/L (22-30); Chloride 105 mmol/L (98-107); Cholesterol 158 mg/dL (<200); Glucose 60 mg/dL (74-99); HDL Cholesterol 35 mg/dL (40-60); LDL Cholesterol,Calculated 82 mg/dL (0-99); Magnesium 1.9 mg/dL (1.6-2.3); Phosphorus 4.4 mg/dL (2.5-4.5); Potassium 5.3 mmol/L (3.5-5.1); Sodium 140 mmol/L (137-145); Total Bilirubin 0.2 mg/dL (0.2-1.3); Total Protein 6.8 g/dL (6.3-8.2); Triglycerides 206 mg/dL (<150)
--- NOTE | 2017-04-24 22:03 | P.PN ---
Subjective Progress Note Date: 04/24/17 CHIEF COMPLAINT: Follow-up gastric bypass. HISTORY OF PRESENT ILLNESS: Caryn Riley is a 36-year-old female status post Sue-en-Y gastric bypass on 06/04/2016. She is now 11 months out. She denies any abdominal pain. No further reports of dysphagia. She reports feeling much better. She is off her medications for depression including bipolar disorder. She does report epigastric abdominal pain when she is off her Prilosec. She now continues her Prilosec. She reports resolution of her diffuse abdominal pain after extensive lysis of adhesions. She is off all pain medications. Her bradycardia has resolved. She drinks moderate amount of skim milk. Her ideal body weight for her 5 feet 9-3/4 inch frame is 168 pounds. Her highest weight was 325 pounds. Today she comes in weighing 238 pounds. She has lost 87 pounds. Percent excess weight loss is 55%. Body mass index reduced from 47.1 down to 34.5. She has lost another 15 pounds in 5 months. PAST MEDICAL HISTORY: 1. History ruptured splenic aneurysm. 2. Bipolar disorder. 3. Depression. 4. Morbid obesity. 5. Osteoarthritis. 6. Asthma. 7. Gastroesophageal reflux disease. 8. Panniculitis. 9. History of chronic abdominal pain. 10. History of uterine dysplasia. 11. Chronic diarrhea. PAST SURGICAL HISTORY: 1. Exploratory laparotomy with splenectomy for splenic artery aneurysm. 2. EGD. 3. Colonoscopy. 4. Laparoscopic cholecystectomy with lysis of adhesions. 5. Gastric bypass. MEDICATIONS: 1. Vitamin A. 2. Omeprazole. 3. Multivitamin. 4. Singulair. ALLERGIES: 1. MORPHINE. 2. PHENERGAN. 3. SULFA. FAMILY HISTORY: Pertinent for depression including mood disorder. She has a family history of bladder, brain, breast, cervical, colon, esophageal, liver, lung, ovarian, prostate, thyroid, uterine, bone cancer and reproductive cancer within her family. Also strong family history of diabetes, including morbid obesity. SOCIAL HISTORY: Lifelong nontobacco user. Denies any illicit drug use or alcohol use. REVIEW OF SYSTEMS: CONSTITUTIONAL: Her ideal body weight for her 5 feet 9-3/4 inch frame is 168 pounds. Her highest weight was 325 pounds. Today she comes in weighing 238 pounds. She has lost 87 pounds. Percent excess weight loss is 55%. Body mass index reduced from 47.1 down to 34.5. She has lost another 15 pounds in 5 months. GASTROINTESTINAL: No reports of dumping syndrome. Does report intermittent epigastric abdominal pain now resolved with Prilosec. HEENT: No reports or troubles with vision, hearing or dysphagia. ENDOCRINE: No reports of active diabetes or thyroid disorder. RESPIRATORY: She has a history of mild sleep apnea, now resolved. No reports of recent pneumonia. CARDIOVASCULAR: Denies any recent chest pain or heart attack. No reports of moderate hypertension. History of asymptomatic bradycardia now resolved. MUSCULOSKELETAL: Has diffuse joint pain including lower back, knees and hips, now resolved. NEURO: No reports of stroke or seizure disorder. PSYCH: History of depression without suicidal ideation now resolved. HEMATOLOGIC: No current history of DVTs or pulmonary emboli. PHYSICAL EXAM: VITAL SIGNS: Height 5 feet 9-3/4 inch frame. Body mass is 34.5 ABDOMEN: Soft, nontender. No palpable incisional hernias. GENERAL: Well-developed, pleasant female in no acute distress. HEENT: No scleral icterus. Extraocular muscles are intact. Moist buccal mucosa. NECK: Supple without lymphadenopathy. CHEST: Nonlabored respirations with equal bilateral excursions. CARDIOVASCULAR: Regular rate and rhythm. MUSCULOSKELETAL: No clubbing, cyanosis, or edema. NEUROLOGICAL: Cranial nerves 2 through 12 grossly within normal limits. No focal or lateralizing signs. PSYCH: Appropriate affect. Alert and oriented to person, place and time. LABS: Laboratory Last Values WBC 12.8 k/uL (3.8-10.6) H 04/24/17 14:38 RBC 5.55 m/uL (3.80-5.40) H 04/24/17 14:38 Hgb 14.8 gm/dL (11.4-16.0) 04/24/17 14:38 Hct 47.7 % (34.0-46.0) H 04/24/17 14:38 MCV 86.0 fL (80.0-100.0) 04/24/17 14:38 MCH 26.7 pg (25.0-35.0) 04/24/17 14:38 MCHC 31.0 g/dL (31.0-37.0) 04/24/17 14:38 RDW 14.1 % (11.5-15.5) 04/24/17 14:38 Plt Count 376 k/uL (150-450) 04/24/17 14:38 Hypochromasia Moderate 04/24/17 14:38 PT 10.5 sec (9.0-12.0) 04/24/17 14:38 INR 1.0 (<1.2) 04/24/17 14:38 APTT 24.5 sec (22.0-30.0) 04/24/17 14:38 Sodium 140 mmol/L (137-145) 04/24/17 14:38 Potassium 5.3 mmol/L (3.5-5.1) H 04/24/17 14:38 Chloride 105 mmol/L (98-107) 04/24/17 14:38 Carbon Dioxide 27 mmol/L (22-30) 04/24/17 14:38 Anion Gap 8 mmol/L 04/24/17 14:38 BUN 19 mg/dL (7-17) H 04/24/17 14:38 Creatinine 0.80 mg/dL (0.52-1.04) 04/24/17 14:38 Est GFR (MDRD) Af Amer >60 (>60 ml/min/1.73 sqM) 04/24/17 14:38 Est GFR (MDRD) Non-Af >60 (>60 ml/min/1.73 sqM) 04/24/17 14:38 Glucose 60 mg/dL (74-99) L 04/24/17 14:38 Calcium 9.5 mg/dL (8.4-10.2) 04/24/17 14:38 Phosphorus 4.4 mg/dL (2.5-4.5) 04/24/17 14:38 Magnesium 1.9 mg/dL (1.6-2.3) 04/24/17 14:38 Total Bilirubin 0.2 mg/dL (0.2-1.3) 04/24/17 14:38 AST 28 U/L (14-36) 04/24/17 14:38 ALT 48 U/L (9-52) 04/24/17 14:38 Alkaline Phosphatase 75 U/L (38-126) 04/24/17 14:38 Total Protein 6.8 g/dL (6.3-8.2) 04/24/17 14:38 Albumin 3.7 g/dL (3.5-5.0) 04/24/17 14:38 Triglycerides 206 mg/dL (<150) H 04/24/17 14:38 Cholesterol 158 mg/dL (<200) 04/24/17 14:38 LDL Cholesterol, Calc 82 mg/dL (0-99) 04/24/17 14:38 HDL Cholesterol 35 mg/dL (40-60) L 04/24/17 14:38 TSH 3.060 mIU/L (0.465-4.680) 04/24/17 14:38 ASSESSMENT: 1. Morbid obesity due to excess calories, improved. 2. Body mass index reduced from 47.1 down to 34.5. 3. Gastroesophageal reflux disease, resolved. 4. Status post Sue-en-Y gastric bypass. 5. Obesity due to excess calories. 6. Osteoarthritis of the bilateral hips, resolved. 7. Osteoarthritis of the knees, resolved. 8. Family history of multiple gastrointestinal cancers. 9. Dietary surveillance and counseling. 10. Depression without recent suicidal ideation. 11. Asthma. 12. Posttraumatic stress disorder. 13. Bipolar disorder, resolved. 14. Obstructive sleep apnea, resolved. 15. History of bradycardia, resolved. 16. Leukocytosis. 17. Hypertriglyceridemia. 18. Dietary surveillance and counseling. 19. Family history of vision disorder. PLAN: 1. She still reports epigastric abdominal pain when she is on Prilosec. Recommend continue Prilosec indefinitely. Additionally recommend taking yogurt daily for gastrointestinal regularity. 2. Recommend bariatric metabolic panel. 3. She has a family history of eye disorder and recommended vitamin A supplement of at least 10,000 units daily. 4. Protein intake over 75 g advised. 5. Follow-up at bariatric Center in 1 month for 1 year anniversary. Objective - Vital Signs Vital signs: Vital Signs Temp 98.2 F 04/24/17 12:58 Pulse 97 04/24/17 12:58 Resp 16 04/24/17 12:58 BP 113/57 04/24/17 12:58 Pulse Ox Intake & Output 04/23/17 04/24/17 04/24/17 18:59 06:59 18:59 Weight 108.153 kg - Labs CBC & Chem 7: 04/24/17 14:38 04/24/17 14:38
[2017-04-25 00:54] LABS: Iron Saturation 18.79 (12.00-45.00)
[2017-04-25 00:58] LABS: Vitamin D 25 Hydroxy 31.1 ng/mL (30.0-100.0)
[2017-04-25 01:17] LABS: Folate, Serum 15.9 ng/mL
[2017-04-25 01:21] LABS: Parathyroid Hormone Intact 59.7 pg/mL (14.0-72.0)
[2017-04-25 01:36] LABS: Hemoglobin A1C 5.8 % (4.0-6.0)
[2017-04-25 14:59] LABS: Zinc, Serum 54 ug/dL (60-130)
[2017-04-26 04:15] LABS: Vitamin B1 64 ug/L (38-122)
[2017-04-26 05:35] LABS: Vitamin A 38 ug/dL (38-106)
[2017-04-27 14:12] LABS: Selenium 119 mcg/L (63-160)
== END | disposition home or self-care (01) ==
LOC: BARWHC3 12:44
PROVIDERS: ATTEND Surgery Plastic and Reconstructive Surgery
DX: Z09 Encounter for follow-up examination after completed treatment for conditions other than malignant neoplasm (principal); E66.01 Morbid (severe) obesity due to excess calories; F32.9 Major depressive disorder, single episode, unspecified; J45.909 Unspecified asthma, uncomplicated; F43.10 Post-traumatic stress disorder, unspecified; D72.829 Elevated white blood cell count, unspecified; E78.1 Pure hyperglyceridemia; Z71.3 Dietary counseling and surveillance; Z79.899 Other long term (current) drug therapy; Z88.5 Allergy status to narcotic agent; Z88.8 Allergy status to other drugs, medicaments and biological substances; Z88.2 Allergy status to sulfonamides; Z98.84 Bariatric surgery status
CPT/HCPCS: 36415; 80053; 80061; 82306; 82525; 82607; 82728; 82746; 83036; 83540; 83550; 83735; 83970; 84100; 84134; 84255; 84425; 84443; 84590; 84630; 85027; 85610; 85730; 97803; 99211

== ENCOUNTER → 2017-07-01 | Outpatient (CLI) | payer BC | END | disposition home or self-care (01) | LOC: LABWHC1 11:19 | PROVIDERS: ATTEND Internal Medicine Endocrinology, Diabetes & Metabolism | DX: E16.1 Other hypoglycemia (principal); E11.9 Type 2 diabetes mellitus without complications; Z98.84 Bariatric surgery status | CPT/HCPCS: 36415; 82024; 82533 ==

== ENCOUNTER 2017-07-08 08:09 | Inpatient (IN) | payer BC ==
[2017-07-08 08:33] LABS: Glucose,Whole Blood 96 mg/dL (75-99)
[2017-07-08 09:59] LABS: Glucose,Whole Blood 92 mg/dL (75-99)
[2017-07-08 10:39] LABS: Glucose,Whole Blood 90 mg/dL (75-99)
[2017-07-08 11:37] LABS: Glucose,Whole Blood 89 mg/dL (75-99)
[2017-07-08] MEDS: MONTELUKAST 10 MG TAB PO SCH (12:20)
[2017-07-08] MEDS: FLUoxetine HCL 20 MG CAP PO SCH (12:20)
[2017-07-08] MEDS: OLANZapine 5 MG TAB PO SCH ×3 (12:21→22:36)
[2017-07-08] MEDS: MULTIVITAMINS, THERA 1 EACH TAB PO SCH (12:21)
[2017-07-08] MEDS: VITAMIN A 10,000 UNIT CAPSULE PO SCH (12:21)
[2017-07-08] MEDS: ZINC SULFATE 220 MG CAP PO SCH (12:21)
[2017-07-08] MEDS: PANTOPRAZOLE 40 MG TABLET PO SCH (12:21)
[2017-07-08 12:41] LABS: Glucose,Whole Blood 77 mg/dL (75-99)
[2017-07-08 13:32] LABS: Glucose,Whole Blood 88 mg/dL (75-99)
[2017-07-08 14:55] LABS: Glucose,Whole Blood 85 mg/dL (75-99)
[2017-07-08 15:31] LABS: Glucose,Whole Blood 97 mg/dL (75-99)
[2017-07-08 16:38] LABS: Glucose,Whole Blood 85 mg/dL (75-99)
--- NOTE | 2017-07-08 16:59 | HP ---
HISTORY AND PHYSICAL DATE OF ADMISSION: 07/08/17 PRESENTING COMPLAINT: Low sugars. HISTORY OF PRESENTING COMPLAINT: This is a 36-year-old patient of Dr. Ventura. The patient's chronic stable medical conditions include asthma, GERD, varicose veins, chronic bradycardia. The patient has a history of Sue-en-Y gastric bypass surgery. The patient getting episodes of hypoglycemia. Becoming more frequent, not responding to her orange juice and sugar tablets. Admitted by Dr. Shelbie Jane from Medical Oncology for further workup. The patient also due to get an outpatient psychiatry followup as I think she may be having some physical manifestations of depression though she herself does not really feel much depressed. REVIEW OF SYSTEMS: CONSTITUTIONAL: None. HEENT none. Respiratory none. Cardiovascular none. Gastrointestinal heartburn. Genitourinary none. Musculoskeletal none. Dermatological and hematologic, lymphatic none. Psychiatry none. Neurological none. PAST MEDICAL HISTORY: Asthma, GERD, GI bleed, varicose veins, chronic bradycardia, hypoglycemic episodes. PAST SURGICAL HISTORY: Adenoidectomy, Sue-en-Y gastric bypass surgery, cholecystectomy, tonsillectomy, splenectomy. PSYCH HISTORY: PTSD and depression. SOCIAL HISTORY: Lives with 2 minor children. Does not smoke or drink alcohol. 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 FAMILY HISTORY: Cancer, diabetes mellitus, fibromyalgia, hyperlipidemia, hypertension, cervical cancer. HOME MEDICATIONS: 1. Zinc. 2. Vitamin A 10,000 units p.o. daily. 3. 40 mg daily. 4. Zyprexa 5 mg p.o. t.i.d. 5. Multivitamin 1 tab p.o. daily. 6. Singulair 10 mg p.o. daily. 7. Prozac 20 mg p.o. daily. 8. Multivitamin 2000 units p.o. daily. ALLERGIES: XANAX, PHENERGAN, NORCO, DILAUDID, LATEX, MORPHINE, SEROQUEL, SULFA, ULTRAM. PHYSICAL EXAMINATION: Temperature 96.9, pulse 83, respiratory 16, blood pressure 115/56, pulse ox 98% on 2 L. General appearance: Well built, BMI 33.2, lying in bed comfortable. Eyes pupils are equal. Conjunctivae normal. HEENT: Oral cavity normal. Neck JVD not raised. Mass not palpable. Respiratory effort normal. Lungs are clear. Cardiovascular 1st and second sounds normal. No edema. ABDOMEN: Soft, nontender. Liver and spleen not palpable. Lymphatics: No lymph nodes palpable in neck or axillae. PSYCHIATRY: Alert and oriented x3. Mood and affect normal. Neurological: Pupils equal. Cranial nerves grossly intact. Power and sensation grossly intact. INVESTIGATIONS: Accu-Cheks are noted 96, 92, 90, 89 and 77. ASSESSMENT: 1. Recurrent episodes of hypoglycemia. Patient with known Sue-en-Y gastric bypass syndrome could be dumping syndrome contributing. 2. Mild intermittent asthma. 3. Chronic gastroesophageal reflux disease. 4. Varicose veins. 5. Chronic bradycardia. 6. Obesity BMI 33.2. PLAN: Home medications were resumed. Dr. Jane's carrying out testing for the hypoglycemia. Care was discussed with the patient. Diet per Dr. Jane. Copy to Dr. Ventura. MMLEONCIOL / DERREKN: [id number] /
[2017-07-08 17:37] LABS: Glucose,Whole Blood 84 mg/dL (75-99)
[2017-07-08 18:42] LABS: Glucose,Whole Blood 84 mg/dL (75-99)
[2017-07-08 19:31] LABS: Glucose,Whole Blood 87 mg/dL (75-99)
[2017-07-08 20:28] LABS: Glucose,Whole Blood 90 mg/dL (75-99)
[2017-07-08 21:49] LABS: Glucose,Whole Blood 87 mg/dL (75-99)
[2017-07-08 22:31] LABS: Glucose,Whole Blood 93 mg/dL (75-99)
[2017-07-09 00:15] LABS: Glucose,Whole Blood 85 mg/dL (75-99)
[2017-07-09 00:15] LABS: Glucose,Whole Blood 87 mg/dL (75-99)
[2017-07-09 00:55] LABS: Glucose,Whole Blood 89 mg/dL (75-99)
[2017-07-09 01:57] LABS: Glucose,Whole Blood 96 mg/dL (75-99)
[2017-07-09 03:04] LABS: Glucose,Whole Blood 81 mg/dL (75-99)
[2017-07-09 04:11] LABS: Glucose,Whole Blood 93 mg/dL (75-99)
[2017-07-09 05:07] LABS: Glucose,Whole Blood 92 mg/dL (75-99)
[2017-07-09 07:11] LABS: Glucose,Whole Blood 87 mg/dL (75-99)
[2017-07-09 08:08] LABS: Glucose,Whole Blood 94 mg/dL (75-99)
[2017-07-09 08:59] LABS: Glucose,Whole Blood 90 mg/dL (75-99)
[2017-07-09] MEDS: PANTOPRAZOLE 40 MG TABLET PO SCH (09:40)
[2017-07-09] MEDS: ENOXAPARIN 40 MG/0.4 ML SYRINGE SQ SCH (09:41)
[2017-07-09] MEDS: OLANZapine 5 MG TAB PO SCH ×3 (09:41→23:16)
[2017-07-09] MEDS: FLUoxetine HCL 20 MG CAP PO SCH (09:41)
[2017-07-09] MEDS: CHOLECALCIFEROL 1,000 UNIT TAB PO SCH (09:41)
[2017-07-09] MEDS: MONTELUKAST 10 MG TAB PO SCH (09:41)
[2017-07-09] MEDS: VITAMIN A 10,000 UNIT CAPSULE PO SCH (09:42)
[2017-07-09] MEDS: ZINC SULFATE 220 MG CAP PO SCH (09:42)
[2017-07-09 10:21] LABS: Glucose,Whole Blood 93 mg/dL (75-99)
[2017-07-09 11:08] LABS: Glucose,Whole Blood 86 mg/dL (75-99)
[2017-07-09] MEDS: MULTIVITAMINS, THERA 1 EACH TAB PO SCH (11:40)
[2017-07-09 12:01] LABS: Glucose,Whole Blood 92 mg/dL (75-99)
[2017-07-09 13:14] LABS: Glucose,Whole Blood 82 mg/dL (75-99)
[2017-07-09 14:15] LABS: Glucose,Whole Blood 88 mg/dL (75-99)
[2017-07-09 15:06] LABS: Glucose,Whole Blood 86 mg/dL (75-99)
[2017-07-09 16:00] LABS: Glucose,Whole Blood 92 mg/dL (75-99)
[2017-07-09 17:03] LABS: Glucose,Whole Blood 85 mg/dL (75-99)
[2017-07-09 18:03] LABS: Glucose,Whole Blood 86 mg/dL (75-99)
[2017-07-09 18:57] LABS: Glucose,Whole Blood 86 mg/dL (75-99)
--- NOTE | 2017-07-09 19:39 | P.PN ---
Progress Note - Text Progress Note Date: 07/09/17 DATE OF SERVICE: 07/09/2017 PRESENTING COMPLAINT: Hypoglycemia HISTORY OF PRESENT ILLNESS: 36-year-old female was had multiple episodes of hypoglycemia which have become more frequent and not been responding to her orange juice and sugar tablets. Admitted by Dr. Shelbie Jane from endocrinology for further workup. INTERVAL HISTORY: 07/09/2017 Lying in bed appears comfortable no acute overnight events. The goal is for the patient's blood sugar to fall to 55 have labs drawn, be given something to eat and be discharged. Blood glucose has not yet fallen to 55 or below. REVIEW OF SYSTEMS: Done for constitutional ,cardiovascular, GI, pulmonary with relevant findings as above. CURRENT MEDICATIONS Cholecalciferol, Lovenox, Prozac, Artis, Theragran M, apraxia, Protonix, vitamin A, zinc sulfate PHYSICAL EXAM VITAL SIGNS: Temp temperature 96.2, pulse 61, respiratory rate 16, blood pressure 113/71, oxygen saturation 95% on room air. GENERAL APPEARANCE: Lying in bed, not in distress. HENT: Normocephalic, Oral cavity normal, external appearance of ears/nose normal EYES:Pupils equal. Conjunctiva normal. RESPIRATORY: Respiratory effort normal. Lungs clear to auscultation. CARDIOVASCULAR: First and second sounds normal. No edema. ABDOMEN: Soft. Liver and spleen not palpable. No tenderness. No mass palpable. PSYCHIATRY: Alert and oriented x3. Mood and affect normal. INVESTIGATIONS: Hourly Glucose monitorin, 93, 87, 90, 87, 84, 84, 85 , 97, 85, 88, 77, and 89, 90, 92, 96., ASSESSMENT: -Recurrent episodes of hypoglycemia. Patient with a known Sue-en-Y gastric bypass syndrome could be dumping syndrome contributing. -Mild intermittent asthma -Chronic gastroesophageal reflux disease. -Varicose veins. -Chronic bradycardia. -Obesity body mass index 33.2. PLAN: Continue blood glucose monitoring per Dr. Jane's direction. Plan of care discussed the bedside with patient she is agreeable. We will follow closely. JIRA DEVELOPER statement: Patient was seen and examined by nurse practitioner Kae Geronimo and all elements of the case discussed with attending Dr. Nguyen
[2017-07-09 20:02] LABS: Glucose,Whole Blood 82 mg/dL (75-99)
[2017-07-09 21:15] LABS: Glucose,Whole Blood 86 mg/dL (75-99)
--- NOTE | 2017-07-09 21:42 | PN ---
PROGRESS NOTE DATE OF SERVICE: 07/09/17. ATTENDING NOTE: The patient seen and examined by me. Discussed with my nurse practitioner, Ms. Geronimo. Patient admitted with workup of hypoglycemia. Stable. Sugars are running low, but nothing has reached a critical level of 50 from my investigations. PHYSICAL EXAMINATION: On examination, afebrile, pulse 68, respirations 20, blood pressure 112/60, pulse ox 96% on room air. Lungs are clear. Cardiovascular: 1st and 2nd sounds normal. ASSESSMENT: Recurrent episodes of hypoglycemia. Workup in place. Other medical conditions stable. Care was discussed with the patient. MMODL / IJN: [id number] /
[2017-07-09 22:09] LABS: Glucose,Whole Blood 78 mg/dL (75-99)
[2017-07-09 23:09] LABS: Glucose,Whole Blood 88 mg/dL (75-99)
[2017-07-10 00:17] LABS: Glucose,Whole Blood 93 mg/dL (75-99)
[2017-07-10 01:10] LABS: Glucose,Whole Blood 87 mg/dL (75-99)
[2017-07-10 02:23] LABS: Glucose,Whole Blood 82 mg/dL (75-99)
[2017-07-10 03:20] LABS: Glucose,Whole Blood 86 mg/dL (75-99)
[2017-07-10 04:26] LABS: Glucose,Whole Blood 94 mg/dL (75-99)
[2017-07-10 05:14] LABS: Glucose,Whole Blood 83 mg/dL (75-99)
[2017-07-10 06:03] LABS: Glucose,Whole Blood 93 mg/dL (75-99)
[2017-07-10 07:02] LABS: Glucose,Whole Blood 86 mg/dL (75-99)
[2017-07-10 08:04] LABS: Glucose,Whole Blood 91 mg/dL (75-99)
[2017-07-10] MEDS: FLUoxetine HCL 20 MG CAP PO SCH (08:13)
[2017-07-10] MEDS: ENOXAPARIN 40 MG/0.4 ML SYRINGE SQ SCH (08:13)
[2017-07-10] MEDS: OLANZapine 5 MG TAB PO SCH ×3 (08:13→21:14)
[2017-07-10] MEDS: MONTELUKAST 10 MG TAB PO SCH (08:13)
[2017-07-10] MEDS: VITAMIN A 10,000 UNIT CAPSULE PO SCH (08:13)
[2017-07-10] MEDS: PANTOPRAZOLE 40 MG TABLET PO SCH (08:13)
[2017-07-10] MEDS: ZINC SULFATE 220 MG CAP PO SCH (08:13)
[2017-07-10] MEDS: CHOLECALCIFEROL 1,000 UNIT TAB PO SCH (08:14)
[2017-07-10 09:14] LABS: Glucose,Whole Blood 101 mg/dL (75-99)
[2017-07-10 10:23] LABS: Glucose,Whole Blood 93 mg/dL (75-99)
[2017-07-10] MEDS: MULTIVITAMINS, THERA 1 EACH TAB PO SCH (11:07)
[2017-07-10 11:35] LABS: Glucose,Whole Blood 95 mg/dL (75-99)
[2017-07-10 12:22] LABS: Glucose,Whole Blood 88 mg/dL (75-99)
[2017-07-10 13:03] LABS: Glucose,Whole Blood 91 mg/dL (75-99)
[2017-07-10 14:18] LABS: Glucose,Whole Blood 84 mg/dL (75-99)
[2017-07-10 15:22] LABS: Glucose,Whole Blood 85 mg/dL (75-99)
[2017-07-10 16:24] LABS: Glucose,Whole Blood 90 mg/dL (75-99)
[2017-07-10 17:15] LABS: Glucose,Whole Blood 81 mg/dL (75-99)
--- NOTE | 2017-07-10 17:31 | P.PN ---
Progress Note - Text Progress Note Date: 07/10/17 DATE OF SERVICE: 07/10/2017 PRESENTING COMPLAINT: Hypoglycemia HISTORY OF PRESENT ILLNESS: 36-year-old female was had multiple episodes of hypoglycemia which have become more frequent and not been responding to her orange juice and sugar tablets. Admitted by Dr. Shelbie Jane from endocrinology for further workup. INTERVAL HISTORY: 07/10/2017: Lying in bed appears comfortable. No acute overnight events, patient is not yet reached her blood sugar goal of 55. No dizziness lightheadedness 07/09/2017 Lying in bed appears comfortable no acute overnight events. The goal is for the patient's blood sugar to fall to 55 have labs drawn, be given something to eat and be discharged. Blood glucose has not yet fallen to 55 or below. REVIEW OF SYSTEMS: Done for constitutional ,cardiovascular, GI, pulmonary with relevant findings as above. CURRENT MEDICATIONS Cholecalciferol, Lovenox, Prozac, Singulair, multivitamin, Zyprexa, Protonix, vitamin a, PHYSICAL EXAM VITAL SIGNS: Temperature 97.1, pulse 58, respiratory rate 18, blood pressure 101/61, oxygen saturation 97% GENERAL APPEARANCE: Lying in bed, not in distress. HENT: Normocephalic, Oral cavity normal, external appearance of ears/nose normal EYES:Pupils equal. Conjunctiva normal. RESPIRATORY: Respiratory effort normal. Lungs clear to auscultation. CARDIOVASCULAR: First and second sounds normal. No edema. ABDOMEN: Soft. Liver and spleen not palpable. No tenderness. No mass palpable. PSYCHIATRY: Alert and oriented x3. Mood and affect normal. INVESTIGATIONS: Hourly Glucose monitoring: Ranging between 78 and 96 ASSESSMENT: -Recurrent episodes of hypoglycemia. Patient with a known Sue-en-Y gastric bypass syndrome could be dumping syndrome contributing. -Mild intermittent asthma -Chronic gastroesophageal reflux disease. -Varicose veins. -Chronic bradycardia. -Obesity body mass index 33.2. PLAN: Continue blood glucose monitoring per Dr. Jane's direction. Plan of care discussed the bedside with patient she is agreeable. We will follow closely. MACHINE OPERATORS statement: Patient was seen and examined by nurse practitioner Kae Geronimo and all elements of the case discussed with attending Dr. Nguyen
[2017-07-10 18:33] LABS: Glucose,Whole Blood 81 mg/dL (75-99)
[2017-07-10 19:03] LABS: Glucose,Whole Blood 86 mg/dL (75-99)
--- NOTE | 2017-07-10 20:01 | PN ---
PROGRESS NOTE DATE OF SERVICE: 07/10/2017. ATTENDING NOTE: This patient was seen and examined by me. I discussed the case with the nurse practitioner Ms. Geronimo. Patient admitted with workup for hypoglycemia; has not reached the critical limit of 55. Has been up out of bed, up and about. On examination, afebrile, pulse 58, respiration 18, blood pressure 101/61, pulse ox 97% on room air. Lungs are clear. CARDIOVASCULAR: First and second sounds normal. ASSESSMENT: Hypoglycemia. Workup in place. Other medical conditions stable. Care was discussed with the patient. MMODL / IJN: [id number] /
[2017-07-10 20:23] LABS: Glucose,Whole Blood 80 mg/dL (75-99)
[2017-07-10 21:00] LABS: Glucose,Whole Blood 80 mg/dL (75-99)
[2017-07-10 22:01] LABS: Glucose,Whole Blood 79 mg/dL (75-99)
[2017-07-10 23:23] LABS: Glucose,Whole Blood 78 mg/dL (75-99)
[2017-07-11 00:07] LABS: Glucose,Whole Blood 82 mg/dL (75-99)
[2017-07-11 01:06] LABS: Glucose,Whole Blood 75 mg/dL (75-99)
[2017-07-11 01:55] LABS: Glucose,Whole Blood 82 mg/dL (75-99)
[2017-07-11 03:06] LABS: Glucose,Whole Blood 79 mg/dL (75-99)
[2017-07-11 04:04] LABS: Glucose,Whole Blood 74 mg/dL (75-99)
[2017-07-11 05:04] LABS: Glucose,Whole Blood 75 mg/dL (75-99)
[2017-07-11 06:03] LABS: Glucose,Whole Blood 82 mg/dL (75-99)
[2017-07-11 07:21] LABS: Glucose,Whole Blood 82 mg/dL (75-99)
[2017-07-11] MEDS: ENOXAPARIN 40 MG/0.4 ML SYRINGE SQ SCH (07:33)
[2017-07-11] MEDS: VITAMIN A 10,000 UNIT CAPSULE PO SCH (07:33)
[2017-07-11] MEDS: OLANZapine 5 MG TAB PO SCH (07:33)
[2017-07-11] MEDS: MONTELUKAST 10 MG TAB PO SCH (07:33)
[2017-07-11] MEDS: PANTOPRAZOLE 40 MG TABLET PO SCH (07:33)
[2017-07-11] MEDS: CHOLECALCIFEROL 1,000 UNIT TAB PO SCH (07:33)
[2017-07-11] MEDS: FLUoxetine HCL 20 MG CAP PO SCH (07:33)
[2017-07-11] MEDS: ZINC SULFATE 220 MG CAP PO SCH (07:34)
[2017-07-11 07:40] VITALS: BP 115/64; PULSE 53; RESP 16; TEMP 96.8
[2017-07-11 08:07] LABS: Glucose,Whole Blood 87 mg/dL (75-99)
[2017-07-11] MEDS: MULTIVITAMINS, THERA 1 EACH TAB PO SCH (11:01)
[2017-07-11 11:57] LABS: Glucose,Whole Blood 116 mg/dL (75-99)
--- NOTE | 2017-07-11 21:24 | P.DS ---
Providers Date of admission: 07/08/17 08:09 Expected date of discharge: 07/11/17 Attending physician: Fuentes Nguyen Consults: 07/08/17 08:32 Consult Physician Routine Consulting Provider: Shelbie Jane Reason/Comments: admission for 72 hour fast glucose test Do you want consulting provider notified?: Yes Primary care physician: [facility] Course: FINAL DIAGNOSES: -Recurrent episodes of hypoglycemia. Patient with a known Sue-en-Y gastric bypass syndrome could be dumping syndrome contributing. -Mild intermittent asthma -Chronic gastroesophageal reflux disease. -Varicose veins. -Chronic bradycardia. -Obesity body mass index 33.2. HOSPTIAL COURSE: 36-year-old female who has had multiple episodes of hypoglycemia which he become more frequent not responding to her orange juice and sugar tablets. Admitted by Dr. Shelbie Jane from endocrinology for further workup. Blood glucose goal was to fall below 55 or below. No food and only water for no more than 72 hours. Patient was provided hourly blood glucose monitoring. Over the course of 72 hours patient's blood glucose did not fall to [address] Shelbie Jane end of the test as it was unequivocal. Current to ambulate in the hallways, Patient was provided a meal, blood glucose checked, and is stable for discharge. PHYSICAL EXAM: CARDIOVASCULAR: Since second sounds noted no edema RESPIRATORY: Respiratory effort normal lung sounds clear to auscultation GI: Abdomen soft nontender liver and spleen not palpable MUSKULOSKELETAL: Ambulatory in the room and hallway with steady gait. Patient was seen and examined by nurse practitioner Kae Geronimo in all elements of the case discussed with attending Dr. Nguyen DISPOSITION: Discharge home Patient Condition at Discharge: Good Plan - Discharge Summary Discharge Rx Participant: Yes New Discharge Prescriptions: Continue Montelukast [Singulair] 10 mg PO DAILY Omeprazole 40 mg PO DAILY #90 capsule. FLUoxetine HCL [PROzac] 20 mg PO DAILY #30 cap OLANZapine [ZyPREXA] 5 mg PO TID #90 tab Zinc 100 mg PO DAILY Multivitamins, Thera [Multivitamin (formulary)] 1 tab PO DAILY Vitamin A Acetate [Vitamin A] 10,000 unit PO DAILY Cholecalciferol (Vitamin D3) [Vitamin D3] 2,000 unit PO DAILY Discharge Medication List Montelukast [Singulair] 10 mg PO DAILY 12/01/15 [History] Omeprazole 40 mg PO DAILY #90 capsule. 06/04/16 [Rx] FLUoxetine HCL [PROzac] 20 mg PO DAILY #30 cap 06/25/17 [Rx] OLANZapine [ZyPREXA] 5 mg PO TID #90 tab 06/25/17 [Rx] Cholecalciferol (Vitamin D3) [Vitamin D3] 2,000 unit PO DAILY 07/08/17 [History] Multivitamins, Thera [Multivitamin (formulary)] 1 tab PO DAILY 07/08/17 [History ] Vitamin A Acetate [Vitamin A] 10,000 unit PO DAILY 07/08/17 [History] Zinc 100 mg PO DAILY 07/08/17 [History] Follow up Appointment(s)/Referral(s): Jordyn Ventura NPC [Primary Care Provider] - 07/18/17 9:30 am Shelbie Jane MD [STAFF PHYSICIAN] - 07/17/17 8:00 am Patient Instructions/Handouts: Non-diabetic Hypoglycemia (GEN) Activity/Diet/Wound Care/Special Instructions: High protein, low carb diet. Stay well hydrated drinking 6-8 cups of liquids daily. Activity as tolerated. Discharge Disposition: HOME SELF-CARE
== END 2017-07-11 14:13 | disposition home or self-care (01) | DRG 641 ==
LOC: 4MS4W 08:09
PROVIDERS: ADMIT Hospitalist; ATTEND Hospitalist
DX: E16.2 Hypoglycemia, unspecified (principal); E66.9 Obesity, unspecified; I83.90 Asymptomatic varicose veins of unspecified lower extremity; J45.20 Mild intermittent asthma, uncomplicated; K21.9 Gastro-esophageal reflux disease without esophagitis; R00.1 Bradycardia, unspecified; F32.9 Major depressive disorder, single episode, unspecified; F43.10 Post-traumatic stress disorder, unspecified; Z68.33 Body mass index [BMI] 33.0-33.9, adult; Z98.84 Bariatric surgery status; Z88.2 Allergy status to sulfonamides; Z88.8 Allergy status to other drugs, medicaments and biological substances; Z88.1 Allergy status to other antibiotic agents; Z91.040 Latex allergy status; Z79.899 Other long term (current) drug therapy; Z83.3 Family history of diabetes mellitus; Z82.49 Family history of ischemic heart disease and other diseases of the circulatory system; Z80.49 Family history of malignant neoplasm of other genital organs; Z90.49 Acquired absence of other specified parts of digestive tract; Z90.89 Acquired absence of other organs; Z90.81 Acquired absence of spleen
CPT/HCPCS: 87324

== ENCOUNTER 2017-09-11 13:16 | Observation (INO) | payer BC ==
[2017-09-11 14:52] LABS: Glucose,Whole Blood 82 mg/dL (75-99)
--- NOTE | 2017-09-11 17:07 | ED ---
Neuro HPI - General Chief Complaint: Neuro Symptoms/Deficit Stated Complaint: NEURO CONSULT, POSS PSYCH Time Seen by Provider: 09/11/17 13:31 Source: patient, EMS Mode of arrival: EMS Limitations: no limitations - History of Present Illness Is the patient presenting with stroke symptoms?: No Initial Comments: 37 years old female transferred to us from [facility] she was seen by the ER physician there she presented there with the complaints of fatigue and diffuse weakness which happened this morning, it happened again, it happened twice today she has these episodes happening to her since 2016 there will last for 30-45 minutes but this time it lasted longer she denies any trauma she denies any street drugs. These episodes she gets so weak that she can't ambulate she can set up and then gradually she regained her strength over 45 minutes. On arrival to the ER she had a similar episode. Initially she didn't even respond to the sternal rub by the nurse later she was more alert she was more awake. She denies any headaches no chest pain no shortness of breath no abdominal pain no frequency urgency dysuria - Related Data Home Medications: Home Medications Medication Instructions Recorded Confirmed Montelukast [Singulair] 10 mg PO DAILY 12/01/15 09/11/17 Cholecalciferol (Vitamin D3) 2,000 unit PO DAILY 07/08/17 09/11/17 [Vitamin D3] Multivitamins, Thera [Multivitamin 1 tab PO DAILY 07/08/17 09/11/17 (formulary)] Vitamin A Acetate [Vitamin A] 10,000 unit PO DAILY 07/08/17 09/11/17 Zinc 50 mg PO BID 09/11/17 09/11/17 Previous Rx's Medication Instructions Recorded Omeprazole 40 mg PO DAILY #90 capsule. 06/04/16 FLUoxetine HCL [PROzac] 20 mg PO DAILY #30 cap 06/25/17 Allergies/Adverse Reactions: Allergies Allergy/AdvReac Type Severity Reaction Status Date / Time alprazolam [From Xanax] Allergy Unknown Verified 09/11/17 13:44 promethazine HCl Allergy Swelling Verified 09/11/17 13:44 [From Phenergan] acetaminophen [From [place]] AdvReac Paralysis Verified 09/11/17 13:44 hydrocodone [From [place]] AdvReac Paralysis Verified 09/11/17 13:44 hydromorphone [From Dilaudid] AdvReac Paralysis Verified 09/11/17 13:44 latex AdvReac Itching Verified 09/11/17 13:44 morphine AdvReac PARALYSIS Verified 09/11/17 13:44 quetiapine [From Seroquel] AdvReac Hallucinati Verified 09/11/17 13:44 ons Sulfa (Sulfonamide AdvReac Depression Verified 09/11/17 13:44 Antibiotics) tramadol AdvReac Paralysis Verified 09/11/17 13:44 Review of Systems ROS Statement: Those systems with pertinent positive or pertinent negative responses have been documented in the HPI. ROS Other: All systems not noted in ROS Statement are negative. General Exam - General Exam Comments Initial Comments: General: The patient is awake and alert, in no distress, and does not appear acutely ill. GCS is 15 Skin: Skin is warm and dry and no rashes or lesions are noted. Eye: Pupils are equal, round and reactive to light, extra-ocular movements are intact; there is normal conjunctiva bilaterally. Ears, nose, mouth and throat: There are moist mucous membranes and no oral lesions. Neck: The neck is supple, there is no tenderness or JVD. Cardiovascular: There is a regular rate and rhythm. No murmur, rub or gallop is appreciated. Respiratory: To auscultation bilateral, no wheezing no rhonchi no distress respiratory nava noticed Gastrointestinal: Soft, non-distended, non-tender abdomen without masses or organomegaly noted. There is no rebound or guarding present. Bowel sounds are unremarkable. Back: There is no tenderness to palpation in the midline. There is no obvious deformity. Musculoskeletal: As quite weak, unable to lift her both arms and she is unable to lift her right leg more than few weeks is off the bed similarly not able to lift her left leg off the bed more than a few inches Neurological: CN II-XII intact, Cranial nerves III through XII are intact. There are no obvious motor or sensory deficits. Coordination appears grossly intact. Speech is normal. Psychiatric: Cooperative, appropriate mood & affect, normal judgment. Limitations: no limitations Stroke MDM - Lab Data Lab Results 09/11/17 Range/Units 14:50 POC Glucose (mg/dL) 82 (75-99) mg/dL POC Glu Rail Transit Operator ID Rabia Fitzgerald Past Medical History Past Medical History: Asthma, GERD/Reflux, GI Bleed, Pneumonia, Thyroid Disorder Additional Past Medical History / Comment(s): Pt recently admitted to [facility] on with possible PTSD, possible depression with accompanied dissassociation , hypoglycemia, chronic bradycardia. Other hx: "HYPOGLYCEMIC from dumping syndrome" PAST HX THYROID PROBLEM WHEN YOUNGER, Borderline Sleep Apnea-no TX, VARICOSE VEINS, BRONCHITIS, GI bleed with SPLENIC ANEURYSM-SPLEENECTOMY. History of Any Multi-Drug Resistant Organisms: None Reported Past Surgical History: Adenoidectomy, Bariatric Surgery, Cholecystectomy, Tonsillectomy Additional Past Surgical History / Comment(s): Splenectomy, EGD with dilatation/ COLONOSCOPY, 06-04-16 DIOGO EN Y, Past Anesthesia/Blood Transfusion Reactions: No Reported Reaction Additional Past Anesthesia/Blood Transfusion Reaction / Comment(s): Pt states she "wakes sooner than usual." Pt has received blood in the past without reaction (with splenectomy). Past Psychological History: Anxiety, Bipolar, Depression, PTSD Smoking Status: Never smoker Past Alcohol Use History: None Reported Past Drug Use History: None Reported - Past Family History Mother Family Medical History: Cancer, Diabetes Mellitus, Fibromyalgia, Hyperlipidemia , Hypertension Additional Family Medical History / Comment(s): Cervical cancer-hysterectomy. Father Family Medical History: Cancer, Coronary Artery Disease (CAD), Hypertension Additional Family Medical History / Comment(s): thyroid cancer that metastasized - at the age of 61yrs Sister(s) Family Medical History: Cancer Course Vital Signs 09/11/17 09/11/17 09/11/17 13:24 14:44 15:33 Temperature 98.5 F Pulse Rate 47 L 48 L 51 L Respiratory 20 18 18 Rate Blood Pressure 112/59 105/62 108/54 O2 Sat by Pulse 95 98 97 Oximetry I reviewed the paperwork from [facility], head CT is normal EKG was unremarkable CBC compressive metabolic panel and urinalysis were unremarkable she be admitted to Dr. Keen service who will consult to Dr. Thomas he is the neurologist election clerk today Disposition Clinical Impression: Weakness Disposition: ADMITTED IP TO THIS [facility] Condition: Good Referrals: Babar Young MD [Primary Care Provider] - 1-2 days
[2017-09-11] MEDS ORDERED: ONDANSETRON 4 MG/2 ML VIAL IVP PRN (17:15)
[2017-09-11] MEDS ORDERED: NALOXONE 0.4 MG/ML 1 ML VIAL IV PRN (17:15)
[2017-09-11] MEDS ORDERED: SODIUM CHLORIDE 0.9% 2,000 ML IV ONE (17:18)
[2017-09-11 20:52] LABS: Basophils # (A) 0.1 k/uL (0-0.2); Basophils % (A) 1 %; Eosinophils # (A) 0.4 k/uL (0-0.7); Eosinophils % (A) 4 %; HCT 41.6 % (34.0-46.0); HGB 13.1 gm/dL (11.4-16.0); Lymphocytes # (A) 4.6 k/uL (1.0-4.8); Lymphocytes % (A) 46 %; MCH 26.5 pg (25.0-35.0); MCHC 31.6 g/dL (31.0-37.0); MCV 83.9 fL (80.0-100.0); Mean Platelet Volume 7.8; Monocytes # (A) 0.4 k/uL (0-1.0); Monocytes % (A) 4 %; Neutrophils # (A) 4.3 k/uL (1.3-7.7); Neutrophils % (A) 43 %; Platelet Count 328 k/uL (150-450); RBC 4.96 m/uL (3.80-5.40); RDW 14.1 % (11.5-15.5)
[2017-09-11 20:58] LABS: INR 1.1 (<1.2); Prothrombin Time 10.8 sec (9.0-12.0)
[2017-09-11] MEDS: ZINC SULFATE 220 MG CAP PO SCH (21:08)
[2017-09-11 21:10] LABS: ALT 33 U/L (9-52); AST 21 U/L (14-36); Albumin 2.9 g/dL (3.5-5.0); Alkaline Phosphatase 63 U/L (38-126); Anion Gap 7 mmol/L; Blood Urea Nitrogen 12 mg/dL (7-17); Calcium 8.7 mg/dL (8.4-10.2); Carbon Dioxide 23 mmol/L (22-30); Chloride 111 mmol/L (98-107); Creatine Kinase 56 U/L (30-135); Glucose 113 mg/dL (74-99); Potassium 4.4 mmol/L (3.5-5.1); Sodium 141 mmol/L (137-145); Total Bilirubin 0.2 mg/dL (0.2-1.3); Total Protein 5.6 g/dL (6.3-8.2)
--- NOTE | 2017-09-11 22:09 | CONS ---
CONSULTATION DATE OF CONSULTATION: 09/11/2017. CHIEF COMPLAINT: Atypical spells. HISTORY OF PRESENT ILLNESS: The patient is a pleasant 37-year-old female who is being evaluated by the neurology service per the request of Dr. Keen for recurrent episodes of generalized weakness and fatigue. The patient states that over the past several weeks, she has been having recurrent episodes where she becomes suddenly weak. This weakness is described as generalized weakness with inability to function. She states that she is even unable to talk when she has these episodes. She denies any altered consciousness or loss of consciousness. These episodes are occurring on a daily basis and they last approximately 30 minutes each time they occur. She denies any lateralizing symptoms and denies any numbness with any of these episodes. In the emergency room, she was having significant bradycardia with heart rates in the low 40s. She also had a drop in her blood pressure. She was admitted for further workup and management. She is currently on telemetry and Cardiology has been consulted. At the time of my evaluation, she states that she is back to her baseline. An EKG was done, which did show sinus bradycardia. PAST MEDICAL HISTORY: Asthma, gastroesophageal reflux disease, history of GI bleed, hypothyroidism, history of hypoglycemic episodes, history of splenectomy, bariatric surgery, adenoidectomy, cholecystectomy, tonsillectomy. She does report a history of bipolar disorder, posttraumatic stress disorder, depression, anxiety disorder. SOCIAL HISTORY: She denies any tobacco, alcohol or drug use. FAMILY HISTORY: Positive for cancer, diabetes, hypertension, dyslipidemia, heart disease. HOME MEDICATIONS: Reviewed in the chart. ALLERGIES: XANAX, PHENERGAN, NORCO, DILAUDID, LATEX, MORPHINE, SEROQUEL, SULFA DRUGS, TRAMADOL. REVIEW OF SYSTEMS: CONSTITUTIONAL: As mentioned above. EYES: Negative. ENT: Negative. CARDIOVASCULAR: As mentioned above. RESPIRATORY: Positive for occasional shortness of breath. NEUROLOGICAL: As mentioned above. GASTROINTESTINAL: Positive for occasional heartburn. GENITOURINARY: Negative. MUSCULOSKELETAL: Positive for occasional pain. ENDOCRINE: Positive for hypothyroidism. PSYCHIATRIC: As mentioned above. DERMATOLOGICAL: Negative. PHYSICAL EXAM: Vital signs show a temperature of 98, pulse 41, respirations 18, blood pressure 103/61. GENERAL APPEARANCE: The patient is a well-developed female who appears to be in no acute distress. HEENT: Normocephalic, atraumatic. No facial asymmetry is seen. Neck is supple with no masses felt. CARDIOVASCULAR: Bradycardic rate with a normal rhythm. ABDOMEN: Nontender nondistended. Extremities showed no edema or clubbing. NEUROLOGICAL: The patient is alert, aware and oriented x3. Speech and language are normal. Strength is full in all 4 extremities. Sensory was normal to light touch in all 4 extremities. No pronator drift is seen. No tremors or seizure-like activity is noticed. No facial asymmetry is seen on cranial nerve testing. IMPRESSION: 1. Recurrent atypical spells. 2. Generalized weakness, resolved. 3. Bradycardia. 4. Episodes of hypotension. RECOMMENDATION: The patient's recurrent episodes of generalized weakness and fatigue are not consistent with any neurological etiology. She continues to have significant bradycardia and she did have an episode of hypotension in the emergency room. Her symptoms are likely due to cardiac etiology. She is currently on telemetry monitoring. Cardiology has been consulted. I will order a serum CPK level, TSH, comprehensive metabolic profile and CBC. An EEG has been ordered. Continue neuro checks. I will continue to follow with you. Further recommendations to follow. Thank you for allowing me to participate in the care of your patient. If you have any questions, please feel free to contact me. MMODL / IJN: [id number] /
[2017-09-12] MEDS ORDERED: ACETAMINOPHEN TAB 500 MG TAB PO PRN (00:33)
[2017-09-12] MEDS ORDERED: PANTOPRAZOLE 40 MG TABLET PO SCH (07:30)
--- NOTE | 2017-09-12 07:57 | HP ---
HISTORY AND PHYSICAL DATE OF SERVICE: 09/11/2017 CHIEF COMPLAINTS: Weakness and tiredness. HISTORY OF PRESENT ILLNESS: This is a 37-year-old woman with a past medical history of asthma, GERD, GI bleed, history of hypothyroidism, history of reactive hypoglycemia, bariatric surgery, cholecystectomy, history of splenectomy, history of anxiety, bipolar depression , PTSD being followed by Dr. Babar Young in the outpatient setting. Patient is referred from [facility] with complaints of weakness. The patient was fatigued with diffuse weakness which is almost a couple episodes a week since May, lasts for 30 to 40 minutes, started with tingling and numbness in both legs and and there is no history of fever, chills, or rigors. No history of headache, loss of consciousness, seizures at this time. PAST MEDICAL HISTORY: History of asthma, GERD, GI bleed, history of bariatric surgery, history of adenoidectomy, anxiety, bipolar depression, PTSD. MEDICATIONS: Prior to admission include home medications are: 1. Tylenol 500 mg q.6 p.r.n. 2. Vitamin D3 two thousand daily. 3. Prozac 20 mg p.o. daily. 4. Singulair 10 mg p.o. daily. 5. Multivitamin 1 p.o. daily. 6. Narcan 0.2 q.2 p.r.n. 7. Zofran 4 mg IV q.8 p.r.n. 8. Protonix 40 mg p.o. daily. 9. Vitamin A 10,000 daily. 10.Orazinc 220 mg p.o. b.i.d. ALLERGIES: XANAX, PHENERGAN, NORCO, DILAUDID, LATEX, MORPHINE, SEROQUEL, SULFONAMIDE, ULTRAM. FAMILY HISTORY: History of cancer, diabetes mellitus, fibromyalgia, hypertension, hyperlipidemia , cervical cancer. SOCIAL HISTORY: No history of smoking. No history of alcohol intake. REVIEW OF SYSTEMS: HEENT: No diminished hearing or diminished vision. CARDIOVASCULAR SYSTEM: No angina or palpitations. RESPIRATORY: As mentioned earlier. GI: No nausea. : No dysuria. NERVOUS SYSTEM: As mentioned earlier. ALLERGY/IMMUNOLOGY: No asthma. MUSCULOSKELETAL: As mentioned earlier. DERMATOLOGY: Negative. ENDOCRINE: No history of diabetes or hypothyroidism. CONSTITUTIONAL: As mentioned earlier. PSYCHIATRY: As mentioned earlier. PHYSICAL EXAMINATION: Patient is alert and oriented x3. Pulse is 48, blood pressure 104/50, respiration 16, temperature 97.2, pulse ox 98% on room air. HEENT: Conjunctivae normal. Oral mucosa moist. Neck is no jugular venous distention. No lymph node enlargement. CARDIOVASCULAR SYSTEM: S1, S2, muffled, no S3, no S4. RESPIRATORY: Breath sounds diminished at the bases. No rhonchi. No crackles. ABDOMEN: Soft, nontender. No mass palpable. LEGS: No edema, no swelling. NERVOUS SYSTEM: Higher functions as mentioned earlier, moves all 4 limbs, no focal motor deficits, no sensory dysfunction. LYMPHATICS: No lymph node enlargement in the neck or axillae. SKIN: No ulcer, rash or bleeding. LABS: At this time shows CBC within normal limits. Chloride is 111, glucose 113, albumin is 2.9. ASSESSMENT: 1. Diffuse weakness with recurrent episodes. Rule out multiple sclerosis. 2. Rule out cardiogenic syncope. 3. Sinus bradycardia. 4. Bradycardia with incomplete right bundle branch block. 5. History of asthma. 6. Gastroesophageal reflux disease. 7. History of gastrointestinal bleed. 8. History pneumonia. 9. History hypothyroidism. 10.History of reactive hypoglycemia. 11.Borderline sleep apnea. 12.History of bariatric surgery. 13.History of cholecystectomy. 14.History of splenectomy. 15.History of anxiety, bipolar depression, PTSD. RECOMMENDATION: In this 37-year-old woman who presented with multiple complex medical issues, will monitor the patient closely. Continue with the current management and symptomatic treatment. Recommend repeat labs. Otherwise, closely follow with Cardiology and Neurology. A 2D echo also will be ordered as a baseline. The patient previously apparently had previous cardiac workup also. We will try to obtain the previous records. Otherwise, prognosis guarded because of the multiple complex medical issues and further recommendations to follow. See orders for details. Medication reconciliation also will be done. MMODL / IJN: [id number] / [id number]
[2017-09-12] MEDS: ZINC SULFATE 220 MG CAP PO SCH (08:03)
[2017-09-12] MEDS ORDERED: FLUoxetine HCL 20 MG CAP PO SCH (09:00)
[2017-09-12] MEDS ORDERED: MONTELUKAST 10 MG TAB PO SCH (09:00)
--- NOTE | 2017-09-12 09:16 | CONS ---
CONSULTATION CHIEF COMPLAINT: Weakness. This is a 37-year-old lady with history of GERD, hypothyroidism, prior history of bariatric surgery, anxiety, bipolar disorder, posttraumatic stress disorder, who presented to hospital complaining of fatigue, tiredness that lasts about 30 to 40 minutes during which time she cannot move, cannot talk, and then gradually resolves on its own. She has had extensive evaluation including cardiac evaluation and sees a senior tax accountant in [place]. She was in the hospital a few months ago at which time she had an echocardiogram that showed normal LV function and an EKG that showed sinus bradycardia. She apparently has had a negative stress test within the last 1-1/2 years. She was evaluated by psychiatrist who felt that she has conversion disorder, also seen by Neurology. From cardiac standpoint, patient has sinus bradycardia which is really not causing any symptoms and it is not responsible for the clinical presentation and does not require further evaluation. She is not on any AV vashti blockers. I ambulated the patient in the hallway and the heart rate appropriately went up to 70 beats per minute. No further cardiac workup is needed at this time. Patient is stable to be discharged home from our standpoint and outpatient followup arranged with her own senior tax accountant. PAST MEDICAL HISTORY: Significant for bipolar mood disorder, bariatric surgery, GERD, asthma, PTSD, and possible conversion disorder. MEDICATIONS: Include vitamin D, Prozac, Singulair, Narcan, multivitamin, Tylenol. Allergic to XANAX, PHENERGAN, NORCO, DILAUDID, LATEX, MORPHINE, SEROQUEL, SULFONAMIDES, ULTRAM. FAMILY HISTORY: Significant for cancer, diabetes, fibromyalgia, hypertension, dyslipidemia. SOCIAL HISTORY: Negative for smoking, ETOH abuse or drug abuse. REVIEW OF SYSTEMS: HEENT is unremarkable. CARDIAC: Negative. RESPIRATORY: Negative. GI: Negative. GENITOURINARY: Negative. BLEACH RANGE OPERATOR: As described above. ALLERGY/IMMUNOLOGY: Negative. MUSCULOSKELETAL: Negative. DERMATOLOGY: Negative. ENDOCRINE: Negative. CONSTITUTIONAL: Negative. PSYCH: Negative. PHYSICAL EXAM: Heart rate is 50. Baseline blood pressure is 93/52 to 106/62, O2 sat is 96% on room air. There is no jugular venous distention. Carotid upstroke is normal. There is no bruit. Chest exam reveals good air entry bilaterally. Heart exam reveals first and second heart sounds. No gallop. No murmur. No rub. Abdomen is soft, nontender. Examination of extremities did not reveal any edema. Peripheral pulses are felt. EKG shows sinus bradycardia. An echocardiogram on that admission showed normal LV function. ASSESSMENT: 1. Sinus bradycardia. 2. Fatigue, tiredness, weakness and inability to communicate, possible conversion disorder. PLAN: No further cardiac workup is necessary at this time. Please ambulate her and possible discharge home. MMODL / IJN: [id number] /
--- NOTE | 2017-09-12 10:16 | ECHOF ---
Referral Reason:PRE-SYNCOPE MEASUREMENTS -------- HEIGHT: 177.8 cm WEIGHT: 108.9 kg BP: 106/50 IVSd: 1.1 cm (0.6 - 1.1) LVIDd: 4.0 cm (3.9 - 5.3) LVPWd: 1.2 cm (0.6 - 1.1) IVSs: 1.5 cm LVIDs: 2.6 cm LVPWs: 1.7 cm LAESV Index (A-L): 26.24 ml/m Ao Diam: 3.9 cm (2.0 - 3.7) AV Cusp: 2.3 cm (1.5 - 2.6) LA Diam: 3.6 cm (2.7 - 3.8) MV EXCURSION: 19.783 mm (> 18.000) MV EF SLOPE: 90 mm/s (70 - 150) EPSS: 0.5 cm MV E Charles: 0.82 m/s MV DecT: 222 ms MV A Charles: 0.32 m/s MV E/A Ratio: 2.55 RAP: 5.00 mmHg RVSP: 15.39 mmHg FINDINGS -------- Sinus rhythm. Resting bradycardia (HR<60bpm). This was a technically good study. The left ventricular size is normal. Left ventricular wall thickness is normal. Overall left vent ricular systolic function is normal with, an EF between 55 - 60 %. The right ventricle is normal in size. The left atrium is normal in size. The right atrium is normal in size and function. The aortic valve is trileaflet, and appears structurally normal. No aortic stenosis or regurgitation. The mitral valve leaflets are mildly thickened. Mild mitral regurgitation is present. Mild tricuspid regurgitation present. The right ventricular systolic pressure, as measured by Doppl er, is 15.39mmHg. Pulmonic valve appears structurally normal. The aortic root size is normal. The inferior vena cava was not well visualized. The pericardium is normal. CONCLUSIONS -------- 1. Sinus rhythm. 2. Resting bradycardia (HR<60bpm). 3. This was a technically good study. 4. The left ventricular size is normal. 5. Left ventricular wall thickness is normal. 6. The right ventricle is normal in size. 7. The left atrium is normal in size. 8. The right atrium is normal in size and function. 9. The aortic valve is trileaflet, and appears structurally normal. No aortic stenosis or regurgitati on. 10. The mitral valve leaflets are mildly thickened. 11. Mild mitral regurgitation is present. 12. The right ventricular systolic pressure, as measured by Doppler, is 15.39mmHg. 13. Pulmonic valve appears structurally normal. 14. The aortic root size is normal. 15. The inferior vena cava was not well visualized. 16. The pericardium is normal. TELEPHONE STATION REPAIRER: Amita Blair RDCS
[2017-09-12 10:32] LABS: Glucose,Whole Blood 85 mg/dL (75-99)
[2017-09-12] MEDS ORDERED: MULTIVITAMINS, THERA 1 EACH TAB PO SCH (12:00)
[2017-09-12] MEDS ORDERED: VITAMIN A 10,000 UNIT CAPSULE PO SCH (12:00)
[2017-09-12] MEDS ORDERED: CHOLECALCIFEROL 1,000 UNIT TAB PO SCH (12:00)
--- NOTE | 2017-09-12 16:15 | P.PN ---
Subjective Progress Note Date: 09/12/17 Principal diagnosis: Atypical spells Is a pleasant 37-year-old female continuing to be evaluated by the neurology service for recurrent episodes of weakness and fatigue. Episodes have been recurring daily and last about 30 minutes. She was noted in the emergency room to have significant bradycardia with heart rates in the 40s. Cardiology consultation has been completed and they do not feel that her bradycardia is a significant factor in these spells. Her EKG shows sinus bradycardia. At the time of my exam she is just returned from her EEG. She already has an appointment scheduled with our office to evaluate these spells. Objective - Vital Signs Vital signs: Vital Signs Temp 97.8 F 09/12/17 07:47 Pulse 50 L 09/12/17 12:00 Resp 14 09/12/17 11:12 BP 114/66 09/12/17 11:12 Pulse Ox 97 09/12/17 11:12 Intake & Output 09/11/17 09/12/17 09/12/17 18:59 06:59 18:59 Intake Total 240 360 Balance 240 360 Weight 108.862 kg 105.9 kg Intake: Oral 240 360 Other: # Voids 1 1 - Constitutional General appearance: Present: no acute distress, obese - EENT Eyes: Present: EOMI, PERRLA. Absent: abnormal pupil, ptosis ENT: Present: hearing grossly normal - Neck Neck: Present: normal ROM. Absent: rigidity - Respiratory Respiratory: negative: prolonged expiration, prolonged inspiration - Cardiovascular Rhythm: regular - Gastrointestinal General gastrointestinal: Absent: distended, tenderness - Neurologic Neurologic Comment(s): The patient is alert awake and oriented 3. Speech and language are normal. There is no facial asymmetry. Strength is 5 out of 5 in bilateral upper and lower extremities. There is no sensory deficit. No tremors or seizures are seen. Cranial nerves II through XII are intact globally. - Labs CBC & Chem 7: 09/11/17 20:27 09/11/17 20:27 Labs: Abnormal Lab Results - Last 24 Hours (Table) 09/11/17 Range/Units 20:27 Chloride 111 H (98-107) mmol/L Glucose 113 H (74-99) mg/dL Total Protein 5.6 L (6.3-8.2) g/dL Albumin 2.9 L (3.5-5.0) g/dL Assessment and Plan (1) Bradycardia Current Visit: Yes Status: Chronic Code(s): R00.1 - BRADYCARDIA, UNSPECIFIED SNOMED Code(s): 87012335 (2) Hypotension Current Visit: Yes Status: Suspected Code(s): I95.9 - HYPOTENSION, UNSPECIFIED SNOMED Code(s): 38325145 (3) Weakness Current Visit: Yes Status: Chronic Code(s): R53.1 - WEAKNESS SNOMED Code(s ): 99147701 (4) Sleep apnea, obstructive Current Visit: No Status: Chronic Code(s): G47.33 - OBSTRUCTIVE SLEEP APNEA (ADULT) (PEDIATRIC) SNOMED Code(s): 94352325 Plan: Again these episodes of weakness and fatigue are not associated with any altered level of consciousness. Although she does have sinus bradycardia, cardiology does not feel like this is significantly contributing to her episodes. Her blood work shows no significant contributory abnormality. An EEG has just been performed. She is cleared for discharge from a neurological standpoint we will follow her up as planned in our office. She will likely need some ambulatory monitoring with both a video EEG and possibly cardiac monitoring. We can arrange this at her visit. I have performed a history and physical on the above patient. I have reviewed the above note, and agree.
[2017-09-12 17:05] VITALS: BP 106/55; PULSE 48; RESP 16; TEMP 97.6
--- NOTE | 2017-09-12 19:55 | EEG ---
ELECTROENCEPHALOGRAM REPORT DATE OF SERVICE: 09/12/2017 REASON FOR TESTING: Atypical spells. DESCRIPTION OF THE PROCEDURE: This EEG was performed using a 21-channel digital electroencephalograph, following international 10-20 system. DESCRIPTION OF THE RECORDING: From the beginning of the tracing, and with the patient's eyes closed, the background rhythm was mostly consisting of 8 to 9 Hz alpha frequency in the posterior occipital leads. No obvious asymmetry is seen. Photic stimulation was performed with a minimal driving response seen. No pathological waves were elicited. Hyperventilation was not performed. Frequent muscle artifacts are seen. The patient remains awake throughout the tracing. No epileptiform discharges were seen. Her EKG lead showed a bradycardic rate with a normal rhythm. INTERPRETATION: This awake EEG can be considered within normal limits, except her EKG lead showed significant bradycardia. No epileptiform discharges were seen. The absence of epileptiform discharges does not rule out the diagnosis of epilepsy; therefore clinical correlation is recommended. MMREGGIE / MELITA: [id number] /
--- NOTE | 2017-09-12 23:37 | DS ---
DISCHARGE SUMMARY DATE OF SERVICE: 09/12/2017. FINAL DIAGNOSES: 1. Diffuse weakness, recurrent episodes, possibly conversion disorder, rule out multiple sclerosis. 2. Sinus bradycardia improved. 3. Cardiogenic syncope unlikely. 4. Incomplete right bundle branch block on the the EKG. 5. History of asthma. 6. Gastroesophageal reflux disease. 7. History of gastrointestinal bleed. 8. History of pneumonia. 9. History of hypothyroidism. 10.History of reactive hypoglycemia. 11.Borderline sleep apnea. 12.History of bariatric surgery. 13.Cholecystectomy. 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 15.History of anxiety, bipolar depression, PTSD. DISCHARGE DISPOSITION: The patient is being discharged in stable condition with guarded prognosis. Discharge cleared by multiple consultants. HISTORY OF PRESENT ILLNESS: This 37-year-old woman with a past medical history of multiple medical problems was admitted with generalized weakness and tiredness and the patient had bradycardia. Monitored closely. Cardiac syncope unlikely per Cardiology. Patient cardiac workup also. Neurology recommended outpatient followup. A 2D echo was noted. The patient discharged. The patient is also seeing psychiatrist and psychotherapist also in the outpatient setting. Recommend the patient follow up closely in the outpatient setting. On exam, vital signs stable. Cardiovascular: No S3, S4. Respiratory: Breath sounds diminished in the bases. No rhonchi. No crackles. Abdomen is soft. Nervous system: No focal deficits. DISCHARGE ADVICE AND MEDICATIONS: 1. Diet is cardiac diet. 2. Activity limited until followup. 3. Follow up with Dr. Young in 2-3 days. 4. Follow up with Dr. Garces as advised. 5. Follow up with Cardiology and Psychiatry as advised. MEDICATIONS: 1. Vitamin D3 2000 daily. 2. Prozac 20 mg p.o. daily. 3. Singular 10 mg p.o. daily. 4. Multivitamins 1 p.o. daily. 5. Omeprazole 40 mg p.o. daily. 6. Vitamin A 71527 daily. 7. Zinc 50 mg p.o. b.i.d. MMODL / IJN: [id number] / MTDD
== END 2017-09-12 18:29 | disposition home or self-care (01) ==
LOC: EC 13:16 → 6SEL 17:15
PROVIDERS: ADMIT Hospitalist; ATTEND Hospitalist
DX: R53.1 Weakness (principal); R53.83 Other fatigue; R00.1 Bradycardia, unspecified; I45.10 Unspecified right bundle-branch block; J45.909 Unspecified asthma, uncomplicated; K21.9 Gastro-esophageal reflux disease without esophagitis; E03.9 Hypothyroidism, unspecified; Z87.01 Personal history of pneumonia (recurrent); E16.1 Other hypoglycemia; Z98.84 Bariatric surgery status; Z90.49 Acquired absence of other specified parts of digestive tract; Z90.81 Acquired absence of spleen; F41.9 Anxiety disorder, unspecified; F31.9 Bipolar disorder, unspecified; F43.10 Post-traumatic stress disorder, unspecified; I95.9 Hypotension, unspecified; Z79.899 Other long term (current) drug therapy; Z88.5 Allergy status to narcotic agent; Z88.2 Allergy status to sulfonamides; Z88.8 Allergy status to other drugs, medicaments and biological substances; Z91.040 Latex allergy status; Z80.49 Family history of malignant neoplasm of other genital organs; Z83.3 Family history of diabetes mellitus; Z82.49 Family history of ischemic heart disease and other diseases of the circulatory system; Z80.8 Family history of malignant neoplasm of other organs or systems; G47.33 Obstructive sleep apnea (adult) (pediatric)
CPT/HCPCS: 96360 ×2; 96361 ×2; 99285; 36415; 95819; 93005; 93306; 80053; 84443; 82550; 84484; 85025; 85610; G0378 ×2

== ENCOUNTER → 2017-12-05 | Outpatient (CLI) | payer OTHER ==
[2017-12-05 12:57] LABS: HCT 44.9 % (34.0-46.0); HGB 14.4 gm/dL (11.4-16.0); Hypochromasia Slight; MCH 27.3 pg (25.0-35.0); MCV 85.1 fL (80.0-100.0); Mean Platelet Volume 6.8; Platelet Count 364 k/uL (150-450); RBC 5.27 m/uL (3.80-5.40); RDW 14.6 % (11.5-15.5); WBC 12.5 k/uL (3.8-10.6)
[2017-12-05 13:00] LABS: Partial Thromboplastin Time 22.9 sec (22.0-30.0); Prothrombin Time 9.7 sec (9.0-12.0)
[2017-12-05 13:15] LABS: ALT 50 U/L (9-52); AST 34 U/L (14-36); Albumin 3.9 g/dL (3.5-5.0); Alkaline Phosphatase 69 U/L (38-126); Anion Gap 10 mmol/L; Blood Urea Nitrogen 20 mg/dL (7-17); Calcium 9.5 mg/dL (8.4-10.2); Carbon Dioxide 28 mmol/L (22-30); Chloride 103 mmol/L (98-107); Cholesterol 185 mg/dL (<200); Glucose 78 mg/dL (74-99); HDL Cholesterol 41 mg/dL (40-60); LDL Cholesterol,Calculated 100 mg/dL (0-99); Magnesium 2.1 mg/dL (1.6-2.3); Potassium 5.2 mmol/L (3.5-5.1); Sodium 141 mmol/L (137-145); Total Bilirubin 0.2 mg/dL (0.2-1.3); Total Protein 6.9 g/dL (6.3-8.2); Triglycerides 220 mg/dL (<150)
[2017-12-05 18:50] LABS: Iron Saturation 13.66 (12.00-45.00)
[2017-12-05 19:00] LABS: Vitamin D 25 Hydroxy 24.7 ng/mL (30.0-100.0)
[2017-12-05 19:13] LABS: Folate, Serum >24.0 ng/mL
[2017-12-05 19:55] LABS: Hemoglobin A1C 5.6 % (4.0-6.0)
[2017-12-05 19:59] LABS: Parathyroid Hormone Intact 89.7 pg/mL (14.0-72.0)
[2017-12-06 11:49] LABS: Zinc, Serum 223 ug/dL (60-130)
[2017-12-07 09:33] LABS: Vitamin B1 106 ug/L (38-122)
[2017-12-07 09:42] LABS: Vitamin A 45 ug/dL (38-106)
== END | disposition home or self-care (01) ==
LOC: LABWHC1 12:10
PROVIDERS: ATTEND Surgery Plastic and Reconstructive Surgery
DX: E66.01 Morbid (severe) obesity due to excess calories (principal); E21.1 Secondary hyperparathyroidism, not elsewhere classified; E89.1 Postprocedural hypoinsulinemia; D50.9 Iron deficiency anemia, unspecified; E44.0 Moderate protein-calorie malnutrition; E55.9 Vitamin D deficiency, unspecified; K74.1 Hepatic sclerosis; N19 Unspecified kidney failure; K50.90 Crohn's disease, unspecified, without complications
CPT/HCPCS: 36415; 80053; 80061; 82306; 82525; 82607; 82728; 82746; 83036; 83540; 83550; 83735; 83970; 84100; 84134; 84255; 84425; 84443; 84590; 84630; 85027; 85610; 85730

== ENCOUNTER → 2017-12-26 | Outpatient (CLI) | payer OTHER ==
[2017-12-26 10:56] VITALS: BMI 34.2
== END | disposition home or self-care (01) ==
LOC: BARWHC3 10:26
PROVIDERS: ATTEND Surgery Plastic and Reconstructive Surgery
DX: E66.01 Morbid (severe) obesity due to excess calories (principal); Z68.34 Body mass index [BMI] 34.0-34.9, adult
CPT/HCPCS: 97803

== ENCOUNTER → 2018-01-07 | Outpatient (CLI) | payer OTHER ==
--- NOTE | 2018-01-07 17:02 | CONS ---
CONSULTATION REFERRING PHYSICIAN: Dr. Garces This is a 37-year-old female patient, who is coming in due to concern of narcolepsy/cataplexy. The patient is having unusual spells where she feels that she cannot move and she is almost paralyzed. Her episode started in May of 2017 without any known triggers. She explains that she starts out by having tingling and numbness and lightheadedness and nausea and within 10 minutes the episode kicks in where she cannot talk or eat or swallow or even move. She will be however conscious and aware of her surroundings and she can hear. She stated that during this episode she cannot respond. No previous history of excessive daytime sleepiness. No history of any sleep paralysis or hypnagogic or hypnopompic hallucinations. The patient claims that she lays down before the spells and they are not associated with any emotional upsets or any other triggers. No history of substance abuse. No signs of any seizure activity. The patient was seen at [facility]. She underwent 72 hour EEG monitoring and she was told to have nonepileptic disorder. Conversion disorder is also being contemplated on this patient. She was started on Prozac 20 mg p.o. daily without any significant benefit. She was referred to me for further evaluation. Her mother is known to me and she has obstructive sleep apnea and I have treated her with CPAP therapy in the past. Of note, I am not aware of any family history of narcolepsy in this patient. No history of head trauma. No history of any neurologic demyelinating disorders. No history of any cardiac disease or cardiac arrhythmias at this point. The patient snores yet she not struggle to stay awake during the day. When she recovers from these episodes she feels sore all over and she struggles to move. No history of any other neuromuscular disorder such as myasthenia gravis. No double vision. No history of any Guillain [place] or any other demyelinating disorder. PAST MEDICAL HISTORY: 1. Positive tilt table test. Currently on Midodrine. 2. Environmental allergies with hives especially with environmental allergies and drugs. 3. Acid reflux. PAST SURGICAL HISTORY: Includes tonsillectomy and adenectomy, cholecystectomy, splenectomy, gastric bypass surgery. DRUG ALLERGIES: Multiple including MORPHINE which makes her unconscious. Similar reactions to DILAUDID, TRAMADOL, NORCO, XANAX. She gets hallucinations with SEROQUEL. She is also allergic to ZYPREXA which causes extreme drowsiness. ABILIFY causes irrational body sensation, SULFA causes depression, LATEX makes her itchy and gives her blotchy skin. She is also allergic to DUST, MOLD, GRASS, POLLENS, CATS and DOGS. OUTPATIENT MEDICATION: Include Singulair 10 daily, Prilosec 40 a day, Prozac 20 daily, 2.5 mg 3 times a day. She is also on Aleve, multivitamin, zinc, vitamin D, vitamin A, calcium citrate with vitamin D, Vitamin B complex, and probiotic. SOCIAL HISTORY: The patient is a nonsmoker. No history of alcohol. No history of IV drugs. No history of substance abuse. She used to be Home [employer] but currently she is not working. FAMILY HISTORY: Positive for obstructive sleep apnea. Her mother has also multiple comorbidities including diabetes, fibromyalgia, hypertension, bipolar disorder and depression, COPD, gastric ulcers, cervical cancer and diabetes mellitus. REVIEW OF SYSTEMS: 12-point review of system was done. Positive findings are mentioned above in the history of present illness. Of significance is the weight loss and chronic fatigue. Denies having any double vision, blurred vision, or ptosis or glaucoma. The patient has lightheadedness but denies having any hearing loss, tinnitus, or vertigo or disequilibrium. She has no angina, no signs of any heart failure. No shortness of breath. She has heartburn. No nausea, vomiting. No constipation. No hematuria. She denies having arthritis and shoulder pain or wrist pain. No carpal tunnel syndrome. She has occasional headaches, numbness and dizziness. She has also history of chronic anxiety with mild component of depression. No hallucinations at this point, no uncontrolled crying. No other active psychiatric disorder. She does have excessive daytime drowsiness but she denies stop breathing at night. No restlessness lower extremities. No history of insomnia. PHYSICAL EXAMINATION: BP is 94/55. Pulse 66, respirations 16, temperature 98.3, weight is 243, height is 5 feet 1 inch. Neck is 16 inches. [place] 13, saturation 97% on room air. GENERAL APPEARANCE: Calm, comfortable. Head is atraumatic, normocephalic. NECK: Supple. There is no JVD. No goiter or neck mass. Mallampati Class 1. LUNGS: Clear to auscultation. HEART: Sounds are regular. Normal S1, S2. No S3, no S4. No murmurs. ABDOMEN: Soft, nontender. No organomegaly. EXTREMITIES: No edema. No cyanosis or clubbing. IMPRESSION: 1. Episodes of body paralysis without loss of consciousness. Exact circumstances discussed in the HPI. No evidence of any seizure activity based on 24 hour EEG monitoring. The patient is currently under investigation. Presentation is not typical of cataplexy. She does have some degree of excessive daytime sleepiness. I doubt these episodes are cataplexy as they are not associated with any emotional triggers and she does not have the typical features of narcolepsy with cataplexy. However based on her ongoing symptoms, it is worthwhile to check of this patient for any sleep breathing disorder and narcolepsy accordingly. 2. Positive tilt table test. Questionable vasovagal syncope. 3. Mild environmental allergies. 4. Acid reflux. PLAN: 1. Stop Prozac. 2. Proceed with a PSG and 2nd day MSLT looking for any significant sleep breathing disorder and 2nd a study will also indicate if there is any indication to support diagnosis of narcolepsy with cataplexy. 3. Encourage weight loss. 4. Implement good sleep hygiene measures. 5. We will continue to follow. MMODL / IJN: [id number] /
== END | disposition home or self-care (01) ==
LOC: SLEEP 13:08
PROVIDERS: ATTEND Internal Medicine Critical Care Medicine
DX: G83.9 Paralytic syndrome, unspecified (principal); K21.9 Gastro-esophageal reflux disease without esophagitis; Z91.048 Other nonmedicinal substance allergy status; Z79.899 Other long term (current) drug therapy; Z88.5 Allergy status to narcotic agent; Z88.6 Allergy status to analgesic agent; Z88.8 Allergy status to other drugs, medicaments and biological substances; Z88.2 Allergy status to sulfonamides; Z91.09 Other allergy status, other than to drugs and biological substances
CPT/HCPCS: 99211

== ENCOUNTER 2018-02-05 11:10 | Emergency (ER) | payer OTHER ==
[2018-02-05 11:42] VITALS: RESP 18
--- NOTE | 2018-02-05 11:59 | ED ---
General Adult HPI - General Chief complaint: Psychiatric Symptoms Stated complaint: EPS eval Time Seen by Provider: 02/05/18 11:15 Source: patient, RN notes reviewed Mode of arrival: EMS - History of Present Illness Initial comments: This is a 37-year-old female with a history of conversion disorders she states she has about 1 day who is in a sleep study when apparently she became unresponsive and catatonic for about an hour. She states she feels better now she states this happens daily. She denies any fevers chills nausea vomiting sweats any headache or any other symptoms at this time there are the ordinary. He denies any drug or alcohol. No other complaints she is not suicidal or homicidal. - Related Data Home Medications Medication Instructions Recorded Confirmed Montelukast [Singulair] 10 mg PO DAILY 12/01/15 09/11/17 Cholecalciferol (Vitamin D3) 2,000 unit PO DAILY 07/08/17 09/11/17 [Vitamin D3] Multivitamins, Thera [Multivitamin 1 tab PO DAILY 07/08/17 09/11/17 (formulary)] Vitamin A Acetate [Vitamin A] 10,000 unit PO DAILY 07/08/17 09/11/17 Zinc 50 mg PO BID 09/11/17 09/11/17 Previous Rx's Medication Instructions Recorded Omeprazole 40 mg PO DAILY #90 capsule. 06/04/16 FLUoxetine HCL [PROzac] 20 mg PO DAILY #30 cap 06/25/17 Allergies Allergy/AdvReac Type Severity Reaction Status Date / Time alprazolam [From Xanax] Allergy Unknown Verified 09/11/17 13:44 promethazine HCl Allergy Swelling Verified 09/11/17 13:44 [From Phenergan] acetaminophen [From Blair] AdvReac Paralysis Verified 09/11/17 13:44 hydrocodone [From Blair] AdvReac Paralysis Verified 09/11/17 13:44 hydromorphone [From Dilaudid] AdvReac Paralysis Verified 09/11/17 13:44 latex AdvReac Itching Verified 09/11/17 13:44 morphine AdvReac PARALYSIS Verified 09/11/17 13:44 quetiapine [From Seroquel] AdvReac Hallucinati Verified 09/11/17 13:44 ons Sulfa (Sulfonamide AdvReac Depression Verified 09/11/17 13:44 Antibiotics) tramadol AdvReac Paralysis Verified 09/11/17 13:44 Review of Systems ROS Statement: Those systems with pertinent positive or pertinent negative responses have been documented in the HPI. ROS Other: All systems not noted in ROS Statement are negative. Past Medical History Past Medical History: Asthma, GERD/Reflux, GI Bleed, Pneumonia, Thyroid Disorder Additional Past Medical History / Comment(s): pt stated she has "reactive hypoglycemia checks bs as needed", hx deepa-en y . chronic bradycardia " PAST HX THYROID PROBLEM WHEN YOUNGER, Borderline Sleep Apnea-no TX, VARICOSE VEINS, BRONCHITIS, GI bleed with SPLENIC ANEURYSM-SPLEENECTOMY. History of Any Multi-Drug Resistant Organisms: None Reported Past Surgical History: Adenoidectomy, Bariatric Surgery, Cholecystectomy, Tonsillectomy Additional Past Surgical History / Comment(s): Splenectomy, EGD with dilatation/ COLONOSCOPY, 06-04-16 DEEPA EN Y, Past Anesthesia/Blood Transfusion Reactions: No Reported Reaction Additional Past Anesthesia/Blood Transfusion Reaction / Comment(s): Pt states she "wakes sooner than usual." Pt has received blood in the past without reaction (with splenectomy). Past Psychological History: Anxiety, Bipolar, Depression, PTSD Smoking Status: Never smoker - Past Family History Mother Family Medical History: Cancer, Diabetes Mellitus, Fibromyalgia, Hyperlipidemia , Hypertension Additional Family Medical History / Comment(s): Cervical cancer-hysterectomy. Father Family Medical History: Cancer, Coronary Artery Disease (CAD), Hypertension Additional Family Medical History / Comment(s): thyroid cancer that metastasized - at the age of 61yrs Sister(s) Family Medical History: Cancer General Exam - General Exam Comments Initial Comments: This is a well-developed well-nourished awake alert oriented 3 female General appearance: alert, in no apparent distress Head exam: Present: atraumatic, normocephalic, normal inspection Eye exam: Present: normal appearance, PERRL, EOMI. Absent: scleral icterus, conjunctival injection, periorbital swelling ENT exam: Present: normal exam, mucous membranes moist Neck exam: Present: normal inspection. Absent: tenderness, meningismus, lymphadenopathy Respiratory exam: Present: normal lung sounds bilaterally. Absent: respiratory distress, wheezes, rales, rhonchi, stridor Cardiovascular Exam: Present: regular rate, normal rhythm, normal heart sounds. Absent: systolic murmur, diastolic murmur, rubs, gallop, clicks GI/Abdominal exam: Present: soft, normal bowel sounds. Absent: distended, tenderness, guarding, rebound, rigid Extremities exam: Present: normal inspection, full ROM, normal capillary refill. Absent: tenderness, pedal edema, joint swelling, calf tenderness Back exam: Present: normal inspection Neurological exam: Present: alert, oriented X3, CN II-XII intact Psychiatric exam: Present: normal affect, normal mood Skin exam: Present: warm, dry, intact, normal color. Absent: rash Course Vital Signs 02/05/18 11:31 Temperature 98.5 F Pulse Rate 63 Respiratory 18 Rate Blood Pressure 122/57 O2 Sat by Pulse 97 Oximetry EKG Findings - EKG Results: EKG: interpreted by PEGGY, sinus rhythm EKG shows: bradycardia (Says bradycardia of 44. Interval 122 QRS duration 90 QT since QTC 522/446 other than the bradycardia no acute ST-T wave abnormalities ) Medical Decision Making - Medical Decision Making Reevaluation patient reveals no she's resting comfortably. Patient states she has a long history of low blood pressure and bradycardia. She'll be discharged he'll follow back up with her doctor. No other workup is indicated at this time. - Lab Data Result diagrams: 02/05/18 12:07 02/05/18 12:07 Lab Results 02/05/18 02/05/18 02/05/18 Range/Units 12:02 12:02 12:07 WBC (3.8-10.6) k/uL RBC (3.80-5.40) m/uL Hgb (11.4-16.0) gm/dL Hct (34.0-46.0) % MCV (80.0-100.0) fL MCH (25.0-35.0) pg MCHC (31.0-37.0) g/dL RDW (11.5-15.5) % Plt Count (150-450) k/uL Neutrophils % % Lymphocytes % % Monocytes % % Eosinophils % % Basophils % % Neutrophils # (1.3-7.7) k/uL Lymphocytes # (1.0-4.8) k/uL Monocytes # (0-1.0) k/uL Eosinophils # (0-0.7) k/uL Basophils # (0-0.2) k/uL Sodium 141 (137-145) mmol/L Potassium 4.5 (3.5-5.1) mmol/L Chloride 108 H (98-107) mmol/L Carbon Dioxide 26 (22-30) mmol/L Anion Gap 7 mmol/L BUN 16 (7-17) mg/dL Creatinine 0.86 (0.52-1.04) mg/dL Est GFR (CKD-EPI)AfAm >90 (>60 ml/min/1.73 sqM) Est GFR (CKD-EPI)NonAf 87 (>60 ml/min/1.73 sqM) Glucose 88 (74-99) mg/dL Calcium 9.1 (8.4-10.2) mg/dL Magnesium 2.0 (1.6-2.3) mg/dL Total Bilirubin 0.3 (0.2-1.3) mg/dL AST 37 H (14-36) U/L ALT 42 (9-52) U/L Alkaline Phosphatase 63 (38-126) U/L Total Creatine Kinase (30-135) U/L Total Protein 6.9 (6.3-8.2) g/dL Albumin 3.8 (3.5-5.0) g/dL Amylase 47 (30-110) U/L Lipase 46 (23-300) U/L Urine Color Light Yellow Urine Appearance Clear (Clear) Urine pH 7.0 (5.0-8.0) Ur Specific [place] 1.008 (1.001-1.035) Urine Protein Negative (Negative) Urine Glucose (UA) Negative (Negative) Urine Ketones Negative (Negative) Urine Blood Negative (Negative) Urine Nitrite Negative (Negative) Urine Bilirubin Negative (Negative) Urine Urobilinogen <2.0 (<2.0) mg/dL Ur Leukocyte Esterase Trace H (Negative) Urine RBC <1 (0-5) /hpf Urine WBC 1 (0-5) /hpf Urine HCG, Qual Not Detected (Not Detectd) Urine Opiates Screen Not Detected (NotDetected) Ur Oxycodone Screen Not Detected (NotDetected) Urine Methadone Screen Not Detected (NotDetected) Ur Propoxyphene Screen Not Detected (NotDetected) Ur Barbiturates Screen Not Detected (NotDetected) U Tricyclic Antidepress Not Detected (NotDetected) Ur Phencyclidine Scrn Not Detected (NotDetected) Ur Amphetamines Screen Not Detected (NotDetected) U Methamphetamines Scrn Not Detected (NotDetected) U Benzodiazepines Scrn Not Detected (NotDetected) Urine Cocaine Screen Not Detected (NotDetected) U Marijuana (THC) Screen Not Detected (NotDetected) 02/05/18 02/05/18 Range/Units 12:07 12:07 WBC 9.7 (3.8-10.6) k/uL RBC 5.48 H (3.80-5.40) m/uL Hgb 14.3 (11.4-16.0) gm/dL Hct 44.6 (34.0-46.0) % MCV 81.5 (80.0-100.0) fL MCH 26.0 (25.0-35.0) pg MCHC 31.9 (31.0-37.0) g/dL RDW 14.0 (11.5-15.5) % Plt Count 421 (150-450) k/uL Neutrophils % 46 % Lymphocytes % 40 % Monocytes % 7 % Eosinophils % 3 % Basophils % 1 % Neutrophils # 4.5 (1.3-7.7) k/uL Lymphocytes # 3.9 (1.0-4.8) k/uL Monocytes # 0.7 (0-1.0) k/uL Eosinophils # 0.3 (0-0.7) k/uL Basophils # 0.1 (0-0.2) k/uL Sodium (137-145) mmol/L Potassium (3.5-5.1) mmol/L Chloride (98-107) mmol/L Carbon Dioxide (22-30) mmol/L Anion Gap mmol/L BUN (7-17) mg/dL Creatinine (0.52-1.04) mg/dL Est GFR (CKD-EPI)AfAm (>60 ml/min/1.73 sqM) Est GFR (CKD-EPI)NonAf (>60 ml/min/1.73 sqM) Glucose (74-99) mg/dL Calcium (8.4-10.2) mg/dL Magnesium (1.6-2.3) mg/dL Total Bilirubin (0.2-1.3) mg/dL AST (14-36) U/L ALT (9-52) U/L Alkaline Phosphatase (38-126) U/L Total Creatine Kinase 111 (30-135) U/L Total Protein (6.3-8.2) g/dL Albumin (3.5-5.0) g/dL Amylase (30-110) U/L Lipase (23-300) U/L Urine Color Urine Appearance (Clear) Urine pH (5.0-8.0) Ur Specific [place] (1.001-1.035) Urine Protein (Negative) Urine Glucose (UA) (Negative) Urine Ketones (Negative) Urine Blood (Negative) Urine Nitrite (Negative) Urine Bilirubin (Negative) Urine Urobilinogen (<2.0) mg/dL Ur Leukocyte Esterase (Negative) Urine RBC (0-5) /hpf Urine WBC (0-5) /hpf Urine HCG, Qual (Not Detectd) Urine Opiates Screen (NotDetected) Ur Oxycodone Screen (NotDetected) Urine Methadone Screen (NotDetected) Ur Propoxyphene Screen (NotDetected) Ur Barbiturates Screen (NotDetected) U Tricyclic Antidepress (NotDetected) Ur Phencyclidine Scrn (NotDetected) Ur Amphetamines Screen (NotDetected) U Methamphetamines Scrn (NotDetected) U Benzodiazepines Scrn (NotDetected) Urine Cocaine Screen (NotDetected) U Marijuana (THC) Screen (NotDetected) Disposition Clinical Impression: Conversion reaction Disposition: HOME SELF-CARE Condition: Good Instructions: Nonepileptic Seizures (ED) Is patient prescribed a controlled substance at d/c from ED?: No Referrals: Babar Young MD [Primary Care Provider] - 1-2 days
[2018-02-05 12:22] LABS: Appearance,Urine Clear (Clear); Bilirubin,Urine Negative (Negative); Blood,Urine Negative (Negative); Color,Urine Light Yellow; Glucose,Urine (UA) Negative (Negative); Ketones,Urine Negative (Negative); Leukocyte Esterase,Urine Trace (Negative); Nitrite,Urine Negative (Negative); Protein,Urine Negative (Negative); RBC,Urine <1 /hpf (0-5); Specific Gravity,Urine 1.008 (1.001-1.035); Urobilinogen,Urine <2.0 mg/dL (<2.0); WBC,Urine 1 /hpf (0-5)
[2018-02-05 12:32] LABS: Basophils # (A) 0.1 k/uL (0-0.2); Basophils % (A) 1 %; Eosinophils # (A) 0.3 k/uL (0-0.7); Eosinophils % (A) 3 %; HCT 44.6 % (34.0-46.0); HGB 14.3 gm/dL (11.4-16.0); Lymphocytes # (A) 3.9 k/uL (1.0-4.8); Lymphocytes % (A) 40 %; MCHC 31.9 g/dL (31.0-37.0); MCV 81.5 fL (80.0-100.0); Mean Platelet Volume 7.1; Monocytes # (A) 0.7 k/uL (0-1.0); Monocytes % (A) 7 %; Neutrophils # (A) 4.5 k/uL (1.3-7.7); Neutrophils % (A) 46 %; Platelet Count 421 k/uL (150-450); RBC 5.48 m/uL (3.80-5.40); WBC 9.7 k/uL (3.8-10.6)
[2018-02-05 12:35] LABS: Amphetamine Screen,Urine Not Detected (NotDetected); Barbiturate Screen,Urine Not Detected (NotDetected); Benzodiazepines Screen,Urine Not Detected (NotDetected); Cocaine Screen,Urine Not Detected (NotDetected); Methadone Screen, Urine Not Detected (NotDetected); Opiate Screen,Urine Not Detected (NotDetected); Oxycodone Screen, Urine Not Detected (NotDetected); Phencyclidine Screen,Urine Not Detected (NotDetected); Tricyclic Antidepressant,Urine Not Detected (NotDetected); Urn Cannabinoid Scrn Not Detected (NotDetected)
[2018-02-05 12:43] LABS: ALT 42 U/L (9-52); AST 37 U/L (14-36); Albumin 3.8 g/dL (3.5-5.0); Alkaline Phosphatase 63 U/L (38-126); Amylase 47 U/L (30-110); Anion Gap 7 mmol/L; Blood Urea Nitrogen 16 mg/dL (7-17); Calcium 9.1 mg/dL (8.4-10.2); Carbon Dioxide 26 mmol/L (22-30); Chloride 108 mmol/L (98-107); Glucose 88 mg/dL (74-99); Lipase 46 U/L (23-300); Potassium 4.5 mmol/L (3.5-5.1); Sodium 141 mmol/L (137-145); Total Bilirubin 0.3 mg/dL (0.2-1.3); Total Protein 6.9 g/dL (6.3-8.2)
[2018-02-05 12:50] LABS: Creatine Kinase 111 U/L (30-135)
[2018-02-05 13:03] LABS: Creatine Kinase MB 0.5 ng/mL (0.0-2.4); Troponin I <0.012 ng/mL (0.000-0.034)
[2018-02-05 13:14] VITALS: BP 118/69; PULSE 49; TEMP 98
== END 2018-02-05 13:14 | disposition home or self-care (01) ==
LOC: EC 11:10
DX: F44.9 Dissociative and conversion disorder, unspecified (principal); J45.909 Unspecified asthma, uncomplicated; Z79.899 Other long term (current) drug therapy; Z88.8 Allergy status to other drugs, medicaments and biological substances; Z88.6 Allergy status to analgesic agent; Z88.5 Allergy status to narcotic agent; Z91.040 Latex allergy status; Z88.2 Allergy status to sulfonamides
CPT/HCPCS: 36415; 80053; 80306; 81001; 81025; 82140; 82150; 82550; 82553; 83690; 83735; 84484; 85025; 99284

== ENCOUNTER → 2018-07-28 | Outpatient (CLI) | payer OTHER ==
[2018-07-28 12:51] LABS: HCT 39.7 % (34.0-46.0); HGB 12.4 gm/dL (11.4-16.0); Hypochromasia Marked; MCH 24.7 pg (25.0-35.0); MCHC 31.2 g/dL (31.0-37.0); MCV 79.2 fL (80.0-100.0); Mean Platelet Volume 6.3; Platelet Count 427 k/uL (150-450); RBC 5.01 m/uL (3.80-5.40); RDW 14.4 % (11.5-15.5); WBC 10.9 k/uL (3.8-10.6)
[2018-07-28 13:01] LABS: INR 0.9 (<1.2); Partial Thromboplastin Time 24.1 sec (22.0-30.0); Prothrombin Time 9.9 sec (9.0-12.0)
[2018-07-28 21:15] LABS: Hemoglobin A1C 5.9 % (4.0-6.0)
[2018-07-28 21:27] LABS: Vitamin D 25 Hydroxy 28.6 ng/mL (30.0-100.0)
[2018-07-28 21:28] LABS: Folate, Serum 9.2 ng/mL
[2018-07-28 21:30] LABS: Iron Saturation 4.28 (12.00-45.00)
[2018-07-28 21:40] LABS: Parathyroid Hormone Intact 50.3 pg/mL (14.0-72.0)
[2018-07-28 22:08] LABS: Albumin/Globulin Ratio 1.74 (1.60-3.17); Anion Gap 8.1 mmol/L (4.00-12.00); Carbon Dioxide 24.9 mmol/L (21.6-31.8); Globulin 2.3 g/dL (1.6-3.3); LDL Cholesterol,Calculated 90.6 mg/dL (0.0-131.0); Magnesium 1.9 mg/dL (1.5-2.4); Phosphorus 4.2 mg/dL (2.4-5.1); Potassium 4.9 mmol/L (3.5-5.5); Total Bilirubin 0.1 mg/dL (0.3-1.2); Total Protein 6.3 g/dL (6.2-8.2); VLDL Calculation 42.4 mg/dL (5.00-40.00)
[2018-07-29 13:47] LABS: Zinc, Serum 78 ug/dL (60-130)
== END | disposition home or self-care (01) ==
LOC: LABWHC1 11:16
PROVIDERS: ATTEND Surgery Plastic and Reconstructive Surgery
DX: E21.1 Secondary hyperparathyroidism, not elsewhere classified (principal); D50.9 Iron deficiency anemia, unspecified; E44.0 Moderate protein-calorie malnutrition; E55.9 Vitamin D deficiency, unspecified; K74.1 Hepatic sclerosis; N19 Unspecified kidney failure; K50.90 Crohn's disease, unspecified, without complications; E66.01 Morbid (severe) obesity due to excess calories
CPT/HCPCS: 36415; 80053; 80061; 82306; 82525; 82607; 82728; 82746; 83036; 83540; 83550; 83735; 83970; 84100; 84134; 84255; 84425; 84443; 84590; 84630; 85027; 85610; 85730

== ENCOUNTER → 2018-07-30 | Outpatient (CLI) | payer OTHER ==
[2018-07-30 13:27] VITALS: BP 105/67; PULSE 72; TEMP 98.2; BMI 36.5
--- NOTE | 2018-07-30 14:19 | P.PN ---
Subjective Progress Note Date: 07/30/18 DATE: 07/30/2018 CHIEF COMPLAINT: Follow-up gastric bypass. HISTORY OF PRESENT ILLNESS: Caryn Riley is a 37-year-old female status post Sue-en-Y gastric bypass on 06/04/2016. She is 2+ years out. She comes in with moderate weight gain. She comes in with food diary journal in detail. She has low iron and she has too much carbs in her diet with 3000 kcal a day. She is eating too many calories. Her ideal body weight for her 5 feet 9-3/4 inch frame is 168 pounds. Her highest weight was 325 pounds. Today she comes in weighing 250 pounds from 238 pounds, 1 year. She has gained 13 pounds in 1 year. She has lost 75 pounds. Percent excess weight loss is 47 %. Body mass index reduced from 47.4 down to 36.5. PAST MEDICAL HISTORY: 1. History ruptured splenic aneurysm. 2. Bipolar disorder. 3. Depression. 4. Morbid obesity, BMI 47.4 initial 5. Osteoarthritis. 6. Asthma. 7. Gastroesophageal reflux disease. 8. Panniculitis. 9. History of chronic abdominal pain. 10. History of uterine dysplasia. 11. Chronic diarrhea. PAST SURGICAL HISTORY: 1. Exploratory laparotomy with splenectomy for splenic artery aneurysm. 2. EGD. 3. Colonoscopy. 4. Laparoscopic cholecystectomy with lysis of adhesions. 5. Gastric bypass, 2015 MEDICATIONS: 1. Vitamin A. 2. Omeprazole. 3. Multivitamin. 4. Singulair. ALLERGIES: 1. MORPHINE. 2. PHENERGAN. 3. SULFA. FAMILY HISTORY: Pertinent for depression including mood disorder. She has a family history of bladder, brain, breast, cervical, colon, esophageal, liver, lung, ovarian, prostate, thyroid, uterine, bone cancer and reproductive cancer within her family. Also strong family history of diabetes, including morbid obesity. SOCIAL HISTORY: Lifelong nontobacco user. Denies any illicit drug use or alcohol use. REVIEW OF SYSTEMS: CONSTITUTIONAL: Her ideal body weight for her 5 feet 9-3/4 inch frame is 168 pounds. Her highest weight was 325 pounds. Body mass index reduced from 47.1. GASTROINTESTINAL: No reports of dumping syndrome. Resolved gastroesophageal reflux disease. HEENT: No reports or troubles with vision, hearing or dysphagia. ENDOCRINE: No reports of active diabetes or thyroid disorder. RESPIRATORY: She has a history of mild sleep apnea, now resolved. No reports of recent pneumonia. CARDIOVASCULAR: Denies any recent chest pain or heart attack. No reports of moderate hypertension. History of asymptomatic bradycardia now resolved. MUSCULOSKELETAL: Has diffuse joint pain including lower back, knees and hips, now resolved. NEURO: No reports of stroke or seizure disorder. PSYCH: History of depression without suicidal ideation now resolved. HEMATOLOGIC: No current history of DVTs or pulmonary emboli. PHYSICAL EXAM: VITAL SIGNS: Height 5 feet 9-3/4 inch frame. Weight 250 pounds. Body mass is 36.5 Vital Signs Temp 98.2 F 07/30/18 13:13 Pulse 72 07/30/18 13:13 Resp BP 105/67 07/30/18 13:13 Pulse Ox ABDOMEN: Soft, nontender. No palpable incisional hernias. GENERAL: Well-developed, pleasant female in no acute distress. HEENT: No scleral icterus. Extraocular muscles are intact. Moist buccal mucosa. NECK: Supple without lymphadenopathy. CHEST: Nonlabored respirations with equal bilateral excursions. CARDIOVASCULAR: Regular rate and rhythm. MUSCULOSKELETAL: No clubbing, cyanosis, or edema. NEUROLOGICAL: Cranial nerves 2 through 12 grossly within normal limits. No focal or lateralizing signs. PSYCH: Appropriate affect. Alert and oriented to person, place and time. SKIN: Well perfused. Good skin turgor. LABS: Reviewed with severe iron deficiency ASSESSMENT: 1. Morbid obesity due to excess calories, improved. 2. Body mass index reduced from 47.1 down to 34.5. 3. Gastroesophageal reflux disease, resolved. 4. Status post Sue-en-Y gastric bypass. 5. Obesity due to excess calories. 6. Osteoarthritis of the bilateral hips, resolved. 7. Osteoarthritis of the knees, resolved. 8. Family history of multiple gastrointestinal cancers. 9. Dietary surveillance and counseling. 10. Depression without recent suicidal ideation. 11. Asthma. 12. Posttraumatic stress disorder. 13. Bipolar disorder, resolved. 14. Obstructive sleep apnea, resolved. 15. History of bradycardia, resolved. 16. Leukocytosis, persistent 17. Hypertriglyceridemia. 18. Dietary surveillance and counseling. 19. History of splenectomy PLAN: 1. Recommend iron infusion for severe and symptomatic iron deficiency 2. Recommend appetite suppresant with apple cidar vinegar 3. Recommend track of meals with My Fitness Pal as an alternative 4. She will be on a reduce carb diet of 150 g and under with extreme at 20 g carb 5. Follow-up in 1 month for weight loss management. 6. Objective - Vital Signs Vital signs: Vital Signs Temp 98.2 F 07/30/18 13:13 Pulse 72 07/30/18 13:13 Resp BP 105/67 07/30/18 13:13 Pulse Ox Intake & Output 07/29/18 07/30/18 07/30/18 18:59 06:59 18:59 Weight 113.852 kg
== END ==
LOC: BARWHC3 12:44
PROVIDERS: ATTEND Surgery Plastic and Reconstructive Surgery
DX: E61.1 Iron deficiency (principal)
CPT/HCPCS: 99211

== ENCOUNTER → 2018-08-27 | Outpatient (CLI) | payer OTHER ==
[2018-08-27 17:03] VITALS: BP 130/75; PULSE 78; RESP 16; TEMP 98; BMI 35.5
--- NOTE | 2018-08-27 18:06 | P.PN ---
Subjective Progress Note Date: 08/27/18 DATE: 08/27/2018 CHIEF COMPLAINT: Follow-up gastric bypass. HISTORY OF PRESENT ILLNESS: Caryn Riley is a 37-year-old female status post Sue-en-Y gastric bypass on 06/04/2016. She is 2+ years out. She had previously presented with moderate weight gain. She was eating over 3000 kcal a day. She has adjusted her diet to low carb and calories. She is using Bariatastic jannet. Her ideal body weight for her 5 feet 9-3/4 inch frame is 168 pounds. Her highest weight was 325 pounds. Today she comes in weighing 245 pounds from 250 pounds 1 month ago. She has lost 5 pounds in 1 month. She has lost 80 pounds. Percent excess weight loss is 51 %. Body mass index reduced from 47.4 down to 35.8. PHYSICAL EXAM: VITAL SIGNS: Height 5 feet 9-3/4 inch frame. Weight 245 pounds. Body mass is 36.5 Vital Signs Temp 98 F 08/27/18 17:59 Pulse 78 08/27/18 17:59 Resp 16 08/27/18 17:59 BP 130/75 08/27/18 17:59 Pulse Ox ABDOMEN: Soft, nontender. No palpable incisional hernias. GENERAL: Well-developed, pleasant female in no acute distress. HEENT: No scleral icterus. Extraocular muscles are intact. Moist buccal mucosa. NECK: Supple without lymphadenopathy. CHEST: Nonlabored respirations with equal bilateral excursions. CARDIOVASCULAR: Regular rate and rhythm. MUSCULOSKELETAL: No clubbing, cyanosis, or edema. NEUROLOGICAL: Cranial nerves 2 through 12 grossly within normal limits. No focal or lateralizing signs. PSYCH: Appropriate affect. Alert and oriented to person, place and time. SKIN: Well perfused. Good skin turgor. ASSESSMENT: 1. Morbid obesity due to excess calories, improved. 2. Body mass index reduced from 47.1 down to 35.6. 3. Gastroesophageal reflux disease, resolved. 4. Status post Sue-en-Y gastric bypass. 5. Obesity due to excess calories. 6. Osteoarthritis of the bilateral hips, resolved. 7. Osteoarthritis of the knees, resolved. 8. Family history of multiple gastrointestinal cancers. 9. Dietary surveillance and counseling. 10. Depression without recent suicidal ideation. 11. Asthma. 12. Posttraumatic stress disorder. 13. Bipolar disorder, resolved. 14. Obstructive sleep apnea, resolved. 15. History of bradycardia, resolved. 16. Leukocytosis, persistent 17. Hypertriglyceridemia. 18. Dietary surveillance and counseling. 19. History of splenectomy PLAN: 1. Recommend food diary journal to help with weight loss Objective - Vital Signs Vital signs: Vital Signs Temp 98 F 08/27/18 16:58 Pulse 78 08/27/18 16:58 Resp 16 08/27/18 16:58 BP 130/75 08/27/18 16:58 Pulse Ox Intake & Output 08/26/18 08/27/18 08/27/18 18:59 06:59 18:59 Weight 111.584 kg
== END ==
LOC: BARWHC3 15:29
PROVIDERS: ATTEND Surgery Plastic and Reconstructive Surgery
DX: Z09 Encounter for follow-up examination after completed treatment for conditions other than malignant neoplasm (principal); E66.01 Morbid (severe) obesity due to excess calories; F32.9 Major depressive disorder, single episode, unspecified; J45.909 Unspecified asthma, uncomplicated; F43.10 Post-traumatic stress disorder, unspecified; D72.829 Elevated white blood cell count, unspecified; E78.1 Pure hyperglyceridemia; Z90.81 Acquired absence of spleen; Z98.84 Bariatric surgery status; Z68.35 Body mass index [BMI] 35.0-35.9, adult; Z80.0 Family history of malignant neoplasm of digestive organs; Z71.3 Dietary counseling and surveillance
CPT/HCPCS: 99211

== ENCOUNTER → 2018-09-25 | Outpatient (CLI) | payer OTHER ==
[2018-09-25 15:21] LABS: Anisocytosis Slight; HCT 41.1 % (34.0-46.0); HGB 13.3 gm/dL (11.4-16.0); MCH 26.9 pg (25.0-35.0); MCHC 32.4 g/dL (31.0-37.0); Mean Platelet Volume 7.3; Platelet Count 367 k/uL (150-450); RBC 4.95 m/uL (3.80-5.40); RDW 17.8 % (11.5-15.5); WBC 9.8 k/uL (3.8-10.6)
[2018-09-25 23:49] LABS: Iron Saturation 16.35 (12.00-45.00)
[2018-09-25 23:50] LABS: Vitamin D 25 Hydroxy 43.9 ng/mL (30.0-100.0)
== END | disposition home or self-care (01) ==
LOC: LABWHC1 14:23
PROVIDERS: ATTEND Surgery Plastic and Reconstructive Surgery
DX: E66.01 Morbid (severe) obesity due to excess calories (principal); D50.8 Other iron deficiency anemias; E55.9 Vitamin D deficiency, unspecified
CPT/HCPCS: 36415; 82306; 82728; 83540; 83550; 85027

== ENCOUNTER → 2019-07-22 | Outpatient (CLI) | payer OTHER ==
--- NOTE | 2019-07-22 16:00 | P.PN ---
Subjective Progress Note Date: 07/22/19 DATE: 07/22/2019 CHIEF COMPLAINT: Status post gastric bypass. HISTORY OF PRESENT ILLNESS: Caryn Riley is a 38-year-old female status post Sue-en-Y gastric bypass on 06/04/2016. She is over 3 years out. She has been hospitalized for mental health and placed on new mood and anti-psychotic medications. She had suicidal ideation. She has been placed on multiple medications as a result. She has gained wegiht from 256 to 267 pounds. She was 275 pounds earlier in the year and has lost weight. She reports not taking enough protein. She denies dysphagia or abdominal pain. She has a new pacemaker and is now on anti-seizure medications. Her ideal body weight for her 5 feet 9-3/4 inch frame is 168 pounds. Her highest weight was 325 pounds. Today she comes in 267 pounds from weighing 245 pound, 1 year ago. She has gained 21 pounds in 1 year. Lifetime weight loss of 58 pounds. Percent lifetime excess weight loss is 37 %. Body mass index reduced from 47.4 down to 38.7. PHYSICAL EXAM: VITAL SIGNS: Height 5 feet 9-3/4 inch frame. Weight 267 pounds. Body mass 38.7 Vital Signs Temp 98 F 07/22/19 15:53 Pulse 97 07/22/19 15:53 Resp BP 94/71 07/22/19 15:53 Pulse Ox ABDOMEN: Soft, nontender. GENERAL: Well-developed, pleasant female in no acute distress. HEENT: No scleral icterus. Extraocular muscles are intact. Moist buccal mucosa. NECK: Supple without lymphadenopathy. CHEST: Nonlabored respirations with equal bilateral excursions. CARDIOVASCULAR: Regular rate and rhythm. MUSCULOSKELETAL: No clubbing, cyanosis, or edema. NEUROLOGICAL: Cranial nerves 2 through 12 grossly within normal limits. No focal or lateralizing signs. PSYCH: Appropriate affect. Alert and oriented to person, place and time. SKIN: Well perfused. Good skin turgor. ASSESSMENT: 1. Morbid obesity due to excess calories, improved. 2. Body mass index reduced from 47.1 down to 38.7 3. Gastroesophageal reflux disease, resolved. 4. Status post Sue-en-Y gastric bypass. 5. Obesity due to excess calories. 6. Osteoarthritis of the bilateral hips, resolved. 7. Osteoarthritis of the knees, resolved. 8. Family history of multiple gastrointestinal cancers. 9. Dietary surveillance and counseling. 10. Depression without recent suicidal ideation. 11. Asthma. 12. Posttraumatic stress disorder. 13. Bipolar disorder, resolved. 14. Obstructive sleep apnea, resolved. 15. History of bradycardia, resolved. 16. Leukocytosis, persistent 17. Hypertriglyceridemia. 18. Dietary surveillance and counseling. 19. History of splenectomy 20. Weight gain following bariatric procedure PLAN: 1. Medication review performed. 2. Recommend food diary journal such as Bariatastic for recent weight regain. 3. Recommend bariatric labs Laboratory Last Values WBC 13.2 k/uL (3.8-10.6) H 07/22/19 16:55 RBC 5.21 m/uL (3.80-5.40) 07/22/19 16:55 Hgb 15.0 gm/dL (11.4-16.0) 07/22/19 16:55 Hct 46.9 % (34.0-46.0) H 07/22/19 16:55 MCV 90.0 fL (80.0-100.0) 07/22/19 16:55 MCH 28.8 pg (25.0-35.0) 07/22/19 16:55 MCHC 32.0 g/dL (31.0-37.0) 07/22/19 16:55 RDW 13.7 % (11.5-15.5) 07/22/19 16:55 Plt Count 388 k/uL (150-450) 07/22/19 16:55 PT 9.5 sec (9.0-12.0) 07/22/19 16:55 INR 0.9 (<1.2) 07/22/19 16:55 APTT 23.2 sec (22.0-30.0) 07/22/19 16:55 Sodium 137 mmol/L (135-145) 07/22/19 16:55 Potassium 4.5 mmol/L (3.5-5.5) 07/22/19 16:55 Chloride 105 mmol/L (96-109) 07/22/19 16:55 Carbon Dioxide 26.4 mmol/L (21.6-31.8) 07/22/19 16:55 Anion Gap 5.60 mmol/L (4.00-12.00) 07/22/19 16:55 BUN 18.0 mg/dL (9.0-27.0) 07/22/19 16:55 Creatinine 1.0 mg/dL (0.6-1.5) 07/22/19 16:55 Est GFR (CKD-EPI)AfAm 82.2 (60.0-200.0) 07/22/19 16:55 Est GFR (CKD-EPI)NonAf 70.9 (60.0-200.0) 07/22/19 16:55 BUN/Creatinine Ratio 18.00 Ratio (12.00-20.00) 07/22/19 16:55 Glucose 107 mg/dL (70-110) 07/22/19 16:[address] Glu mg/dL 111 07/22/19 16:55 Hemoglobin A1c 5.5 % (4.0-6.0) 07/22/19 16:55 Calcium 8.7 mg/dL (8.7-10.3) 07/22/19 16:55 Phosphorus 4.2 mg/dL (2.4-5.1) 07/22/19 16:55 Magnesium 2.1 mg/dL (1.5-2.4) 07/22/19 16:55 Iron 49 ug/dL (50-170) L 07/22/19 16:55 TIBC 258 ug/dL (228-460) 07/22/19 16:55 % Saturation 18.99 (12.00-45.00) 07/22/19 16:55 Ferritin 55.2 ng/mL (10.0-291.0) 07/22/19 16:55 Total Bilirubin 0.1 mg/dL (0.3-1.2) L 07/22/19 16:55 AST 28 U/L (13-35) 07/22/19 16:55 ALT 36 U/L (8-44) 07/22/19 16:55 Alkaline Phosphatase 70 U/L (41-126) 07/22/19 16:55 Total Protein 6.3 g/dL (6.2-8.2) 07/22/19 16:55 Albumin 4.10 g/dL (3.80-4.90) 07/22/19 16:55 Globulin 2.2 g/dL (1.6-3.3) 07/22/19 16:55 Albumin/Globulin Ratio 1.86 g/dL (1.60-3.17) 07/22/19 16:55 Prealbumin 20.0 mg/dL (18.0-42.0) 07/22/19 16:55 Triglycerides 314.0 mg/dL (0.0-149.0) H 07/22/19 16:55 Cholesterol 207 mg/dL (0-200) H 07/22/19 16:55 LDL Cholesterol, Calc 105.2 mg/dL (0.0-131.0) 07/22/19 16:55 VLDL Cholesterol, Calc 62.80 mg/dL (5.00-40.00) H 07/22/19 16:55 HDL Cholesterol 39.0 mg/dL (40.0-60.0) L 07/22/19 16:55 Cholesterol/HDL Ratio 5.31 07/22/19 16:55 Vitamin A 49 ug/dL (38-106) 07/22/19 16:55 Vitamin B1 93 ug/L (38-122) 07/22/19 16:55 Vitamin B12 827.0 pg/mL (200.0-944.0) 07/22/19 16:55 Vitamin D 25-Hydroxy 66.9 ng/mL (30.0-100.0) 07/22/19 16:55 Folate 24.0 ng/mL 07/22/19 16:55 TSH 1.040 uIU/mL (0.350-5.500) 07/22/19 16:55 PTH Intact 66.7 pg/mL (14.0-72.0) 07/22/19 16:55 Copper 1137 ug/L (810-1990) 07/22/19 16:55 Selenium 115 mcg/L (63-160) 07/22/19 16:55 Zinc 56 ug/dL (60-130) L 07/22/19 16:55 Iron is low ZInc is low Objective - Labs CBC & Chem 7: 07/22/19 16:55 07/22/19 16:55
[2019-07-22 16:14] VITALS: BP 94/71; PULSE 97; TEMP 98; BMI 38.6
[2019-07-22 17:16] LABS: HCT 46.9 % (34.0-46.0); MCH 28.8 pg (25.0-35.0); Mean Platelet Volume 7.4; Platelet Count 388 k/uL (150-450); RBC 5.21 m/uL (3.80-5.40); RDW 13.7 % (11.5-15.5); WBC 13.2 k/uL (3.8-10.6)
[2019-07-22 17:22] LABS: INR 0.9 (<1.2); Partial Thromboplastin Time 23.2 sec (22.0-30.0); Prothrombin Time 9.5 sec (9.0-12.0)
[2019-07-23 01:09] LABS: Ferritin 55.2 ng/mL (10.0-291.0)
[2019-07-23 01:23] LABS: Hemoglobin A1C 5.5 % (4.0-6.0)
[2019-07-23 01:34] LABS: % Iron Saturation 18.99 (12.00-45.00); African American GFR (CKD) 82.2 (60.0-200.0); Albumin 4.1 g/dL (3.80-4.90); Albumin/Globulin Ratio 1.86 (1.60-3.17); Anion Gap 5.6 mmol/L (4.00-12.00); Calcium 8.7 mg/dL (8.7-10.3); Carbon Dioxide 26.4 mmol/L (21.6-31.8); Chol/HDL Ratio 5.31; Globulin 2.2 g/dL (1.6-3.3); LDL Cholesterol,Calculated 105.2 mg/dL (0.0-131.0); Magnesium 2.1 mg/dL (1.5-2.4); Non-African American GFR(CKD) 70.9 (60.0-200.0); Phosphorus 4.2 mg/dL (2.4-5.1); Potassium 4.5 mmol/L (3.5-5.5); Total Bilirubin 0.1 mg/dL (0.3-1.2); Total Protein 6.3 g/dL (6.2-8.2); VLDL Calculation 62.8 mg/dL (5.00-40.00)
[2019-07-23 14:01] LABS: Zinc, Serum 56 ug/dL (60-130)
[2019-07-24 07:09] LABS: Vitamin A 49 ug/dL (38-106)
[2019-07-24 12:51] LABS: Vit B1(Thiamine) 93 ug/L (38-122)
[2019-07-24 22:30] LABS: Selenium 115 mcg/L (63-160)
== END | disposition home or self-care (01) ==
LOC: BARWHC3 14:22
PROVIDERS: ATTEND Surgery Plastic and Reconstructive Surgery
DX: E66.01 Morbid (severe) obesity due to excess calories (principal); F32.9 Major depressive disorder, single episode, unspecified; J45.909 Unspecified asthma, uncomplicated; F43.10 Post-traumatic stress disorder, unspecified; E21.1 Secondary hyperparathyroidism, not elsewhere classified; D50.9 Iron deficiency anemia, unspecified; E44.0 Moderate protein-calorie malnutrition; E55.9 Vitamin D deficiency, unspecified; K74.1 Hepatic sclerosis; N19 Unspecified kidney failure; K50.90 Crohn's disease, unspecified, without complications; D72.829 Elevated white blood cell count, unspecified; E78.1 Pure hyperglyceridemia; Z90.81 Acquired absence of spleen; Z68.38 Body mass index [BMI] 38.0-38.9, adult; Z98.84 Bariatric surgery status; Z71.3 Dietary counseling and surveillance
CPT/HCPCS: 84255; 84134; 84425; 80061; 80053; 82607; 82728; 82525; 82746; 83540; 83550; 83735; 84100; 84443; 84590; 84630; 85027; 85610; 85730; 82306; 83970; 83036; G0463; 99211